=== PATIENT | male | born 1945 | race African-American/Black ===

== ENCOUNTER → 2016-06-27 | Outpatient (CLI) | payer MEDICARE, OTHER | LOC: RAD 09:37 | PROVIDERS: ATTEND Physician Assistant | DX: M54.2 Cervicalgia (principal); M47.892 Other spondylosis, cervical region | CPT/HCPCS: 72050 ==

== ENCOUNTER → 2016-07-10 | Outpatient (CLI) | payer MEDICARE, OTHER | LOC: RAD 07:54 | PROVIDERS: ATTEND Physician Assistant | DX: R94.5 Abnormal results of liver function studies (principal); R42 Dizziness and giddiness | CPT/HCPCS: 76705; 93880 ==

== ENCOUNTER → 2016-10-04 | Outpatient (CLI) | payer MEDICARE, OTHER | LOC: RAD 16:22 | PROVIDERS: ATTEND Family Medicine | DX: M54.5 Low back pain (principal) | CPT/HCPCS: 72148 ==

== ENCOUNTER → 2017-06-17 | Outpatient (CLI) | payer MEDICARE, OTHER ==
--- NOTE | 2017-06-18 09:38 | RADIOLOGY REPORT (SQ) ---
EXAM DESCRIPTION: MRI CERVICAL SPINE WITHOUT COMPLETED DATE/TIME: 06/17/2017 9:28 pm REASON FOR STUDY: CERVICALGIA M54.2 CERVICALGIA COMPARISON: Cervical spine plain films 06/27/2016 TECHNIQUE: Sagittal and Axial imaging includes T1, T2, STIR and gradient echo sequences. LIMITATIONS: None. FINDINGS: ALIGNMENT: Normal. VERTEBRAE: Intact. BONE MARROW: Normal. No marrow replacement or reactive changes. DISCS: Diffuse decreased T2 weighted intervertebral disc signal. HARDWARE: None in the spine. CORD AND BASE OF BRAIN: Normal in size and signal intensity. SOFT TISSUES: No soft tissue masses. C1-C2: No significant spinal stenosis. C2-C3: Minimal posterior disc bulging is present. No significant central or foraminal encroachment. C3-C4: Mild to moderate central canal stenosis results from broad diffuse disc bulge and bony spurrin g and mild bilateral facet and ligament hypertrophy. There is partial effacement of CSF around the c ervical cord, mild cord flattening without abnormal intrinsic cord signal. High-grade bilateral fora abhilash narrowing from facet and uncovertebral hypertrophy. C4-C5: Moderate central canal stenosis results from broad diffuse posterior disc bulge and bony spurr ing. This effaces the ventral thecal sac and abuts the cord with mild cord flattening. No abnormal intrinsic cord signal. Moderate right, high-grade left foraminal narrowing from facet and uncoverteb ral hypertrophy C5-C6: Mild to moderate central canal stenosis results from broad diffuse posterior disc bulge and carola [place] spurring. There is partial effacement of the CSF around the cervical cord without cord flattening or abnormal intrinsic cord signal. Moderate to high-grade bilateral foraminal narrowing is present from facet and uncovertebral hypertrophy. C6-C7: Mild to moderate central canal stenosis results from broad diffuse posterior disc bulge and carola ny spur with a more focal right paracentral and proximal foraminal bulge and bony spur. This flatten s the rightward cervical cord without definite intrinsic cord signal. High-grade right, moderate lef t foraminal narrowing from facet and uncovertebral hypertrophy. C7-T1: Mild diffuse posterior disc bulging, moderate bilateral facet and ligament hypertrophy. Borde rline central canal narrowing. Moderate bilateral foraminal narrowing from facet and uncovertebral h ypertrophy OTHER: No other significant finding. IMPRESSION: Multilevel significant central and foraminal stenosis. TECHNICAL DOCUMENTATION: JOB ID: [id number]- All Rights Reserved
== END ==
LOC: RAD 19:09
PROVIDERS: ATTEND Orthopaedic Surgery
DX: M54.2 Cervicalgia (principal)
CPT/HCPCS: 72141

== ENCOUNTER 2017-09-24 23:33 | Emergency (ER) | payer MEDICARE, OTHER ==
[2017-09-25] MEDS ORDERED: NALOXONE HCL INJ/PF 0.4 MG/1 ML SDV IV ONE
--- NOTE | 2017-09-25 | ER Document Report ---
ED General - General Chief Complaint: Low Blood Pressure Stated Complaint: ALTERED MENTAL STATUS Time Seen by Provider: 09/24/17 23:48 Notes: 72-year-old male presents via EMS for altered mental status. EMS arrived when I stated that he was unresponsive. EMS stated that his blood pressure was low. IV was established. Blood sugar was reportedly normal. Patient was mumbling but otherwise no acute issues. Patient was seen immediately on arrival. Patient was responsive. Stated that he felt like he was floating out of his body. Had surgery on his neck 3 weeks ago and has been going to physical therapy. Has numbness going down his right arm. Denies any fever. Stated that he felt extremely cold. states that he has been wearing gloves at home because his hands are cold. No changes on medications. Patient does suffer from PTSD from [place]. TRAVEL OUTSIDE OF THE [place] IN LAST 30 DAYS: No - HPI Onset: Just prior to arrival - Related Data Allergies/Adverse Reactions: No Known Allergies Allergy (Unverified 05/27/11 18:33) Past Medical History - General Information source: Patient, Relative - Social History Smoking Status: Never Smoker Cigarette use (# per day): No Frequency of alcohol use: None Drug Abuse: None Lives with: Spouse/Significant other Family History: Reviewed & Not Pertinent - Past Medical History Cardiac Medical History: Reports: Hx Hypertension Endocrine Medical History: Reports: Hx Diabetes Mellitus Type 2 Past Surgical History: Reports: Hx Cholecystectomy - Immunizations Hx Diphtheria, Pertussis, Tetanus Vaccination: - unknown Review of Systems - Review of Systems Constitutional: Chills, Weakness. denies: Fever, Malaise EENT: No symptoms reported Cardiovascular: No symptoms reported Respiratory: No symptoms reported Gastrointestinal: No symptoms reported Genitourinary: No symptoms reported Male Genitourinary: No symptoms reported Musculoskeletal: No symptoms reported Skin: No symptoms reported Hematologic/Lymphatic: No symptoms reported Neurological/Psychological: Confusion, Sensory change, Weakness, Numbness Physical Exam - Vital signs Vitals: Temp Pulse Resp BP Pulse Ox 97.4 F 84 16 128/72 H 98 09/24/17 23:50 09/24/17 23:50 09/24/17 23:50 09/24/17 23:50 09/24/17 23:50 Interpretation: Normal - General General appearance: Appears well, Alert - HEENT Head: Normocephalic, Atraumatic Eyes: Normal Pupils: PERRL - Respiratory Respiratory status: No respiratory distress Chest status: Nontender Breath sounds: Normal Chest palpation: Normal - Cardiovascular Rhythm: Regular Heart sounds: Normal auscultation Murmur: No - Abdominal Inspection: Normal Distension: No distension Bowel sounds: Normal Tenderness: Nontender Organomegaly: No organomegaly - Back Back: Normal, Nontender - Extremities General upper extremity: Normal inspection, Nontender, Normal color, Normal ROM , Normal temperature General lower extremity: Normal inspection, Nontender, Normal color, Normal ROM , Normal temperature, Normal weight bearing. No: Capo's sign - Neurological Neuro grossly intact: Yes Cognition: Normal Orientation: AAOx4 [place] Coma Scale Eye Opening: Spontaneous Keegan Coma Scale Verbal: Oriented Keegan Coma Scale Motor: Obeys Commands [place] Coma Scale Total: 15 Speech: Normal Motor strength normal: LUE, RUE, LLE, RLE Sensory: Normal - Psychological Associated symptoms: Normal affect, Normal mood - Skin Skin Temperature: Warm Skin Moisture: Dry Skin Color: Normal Course - Re-evaluation Re-evalutation: 09/25/17 04:08 Initial workup unremarkable. Labs unremarkable. Head CT unremarkable. Patient is still sleepy. Patient did receive a small dose of Narcan. Uncertain whether or not this helped at all. Patient does suffer from severe PTSD. States that he was watching some more movies and shortly after that he began to feel like he was having out of body experience. He states that he has never felt this way before. Denies any hallucinations. Is not suicidal. Patient states that he feels very thirsty. Has been unable to void while here. At this time uncertain why he was altered. Will discuss possible admission to the hospital at this time with the hospitalist. 09/25/17 05:16 Patient's labs, CT chest x-ray unremarkable. Much more alert at this time. Hospitalist has seen and evaluated patient. Does not feel patient needs to be admitted. I would agree at this time. Patient has 300 cc according to bladder scan. Will attempt to get him to urinate if not may need to do a [place]. Patient has follow-up appointment. Is a and O 4 and in no acute distress at this time. 09/25/17 06:18 Laboratory 09/24/17 09/24/17 09/24/17 23:15 23:15 23:15 WBC 5.4 RBC 4.09 L Hgb 11.6 L Hct 36.2 L MCV 89 MCH 28.4 MCHC 32.1 RDW 14.1 H Plt Count 247 Seg Neutrophils % 54.0 Lymphocytes % 31.6 Monocytes % 11.9 Eosinophils % 2.2 Basophils % 0.3 Absolute Neutrophils 2.9 Absolute Lymphocytes 1.7 Absolute Monocytes 0.6 Absolute Eosinophils 0.1 Absolute Basophils 0.0 PT 13.6 INR 0.99 VBG pH VBG pCO2 VBG HCO3 VBG Base Excess Sodium Cancelled Potassium Cancelled Chloride Cancelled Carbon Dioxide Cancelled Anion Gap Cancelled BUN Cancelled Creatinine Cancelled Est GFR ( Amer) Cancelled Est GFR (Non-Af Amer) Cancelled Glucose Cancelled POC Glucose Lactic Acid Calcium Cancelled Total Bilirubin Cancelled Direct Bilirubin Cancelled Neonat Total Bilirubin Cancelled Neonat Direct Bilirubin Cancelled Neonat Indirect Bili Cancelled AST Cancelled ALT Cancelled Alkaline Phosphatase Cancelled Troponin I Total Protein Cancelled Albumin Cancelled Urine Color Urine Appearance Urine pH Ur Specific [place] Urine Protein Urine Glucose (UA) Urine Ketones Urine Blood Urine Nitrite Urine Bilirubin Urine Urobilinogen Ur Leukocyte Esterase Urine WBC (Auto) Urine RBC (Auto) U Hyaline Cast (Auto) Squamous Epi Cells Auto Urine Mucus (Auto) Urine Ascorbic Acid 09/24/17 09/25/17 09/25/17 23:15 00:24 00:24 WBC RBC Hgb Hct MCV MCH MCHC RDW Plt Count Seg Neutrophils % Lymphocytes % Monocytes % Eosinophils % Basophils % Absolute Neutrophils Absolute Lymphocytes Absolute Monocytes Absolute Eosinophils Absolute Basophils PT INR VBG pH 7.33 VBG pCO2 54.2 VBG HCO3 28.1 VBG Base Excess 1.3 Sodium Potassium Chloride Carbon Dioxide Anion Gap BUN Creatinine Est GFR ( Amer) Est GFR (Non-Af Amer) Glucose POC Glucose Lactic Acid 1.8 Calcium Total Bilirubin Direct Bilirubin Neonat Total Bilirubin Neonat Direct Bilirubin Neonat Indirect Bili AST ALT Alkaline Phosphatase Troponin I Cancelled Total Protein Albumin Urine Color Urine Appearance Urine pH Ur Specific [place] Urine Protein Urine Glucose (UA) Urine Ketones Urine Blood Urine Nitrite Urine Bilirubin Urine Urobilinogen Ur Leukocyte Esterase Urine WBC (Auto) Urine RBC (Auto) U Hyaline Cast (Auto) Squamous Epi Cells Auto Urine Mucus (Auto) Urine Ascorbic Acid 09/25/17 09/25/17 09/25/17 00:30 00:57 00:57 WBC RBC Hgb Hct MCV MCH MCHC RDW Plt Count Seg Neutrophils % Lymphocytes % Monocytes % Eosinophils % Basophils % Absolute Neutrophils Absolute Lymphocytes Absolute Monocytes Absolute Eosinophils Absolute Basophils PT INR VBG pH VBG pCO2 VBG HCO3 VBG Base Excess Sodium Cancelled Potassium Cancelled Chloride Cancelled Carbon Dioxide Cancelled Anion Gap Cancelled BUN Cancelled Creatinine Cancelled Est GFR ( Amer) Cancelled Est GFR (Non-Af Amer) Cancelled Glucose Cancelled POC Glucose 156 H Lactic Acid Calcium Cancelled Total Bilirubin Cancelled Direct Bilirubin Cancelled Neonat Total Bilirubin Cancelled Neonat Direct Bilirubin Cancelled Neonat Indirect Bili Cancelled AST Cancelled ALT Cancelled Alkaline Phosphatase Cancelled Troponin I < 0.012 Total Protein Cancelled Albumin Cancelled Urine Color Urine Appearance Urine pH Ur Specific [place] Urine Protein Urine Glucose (UA) Urine Ketones Urine Blood Urine Nitrite Urine Bilirubin Urine Urobilinogen Ur Leukocyte Esterase Urine WBC (Auto) Urine RBC (Auto) U Hyaline Cast (Auto) Squamous Epi Cells Auto Urine Mucus (Auto) Urine Ascorbic Acid 09/25/17 09/25/17 02:41 05:52 WBC RBC Hgb Hct MCV MCH MCHC RDW Plt Count Seg Neutrophils % Lymphocytes % Monocytes % Eosinophils % Basophils % Absolute Neutrophils Absolute Lymphocytes Absolute Monocytes Absolute Eosinophils Absolute Basophils PT INR VBG pH VBG pCO2 VBG HCO3 VBG Base Excess Sodium 143.8 Potassium 4.3 Chloride 105 Carbon Dioxide 28 Anion Gap 11 BUN 11 Creatinine 0.88 Est GFR ( Amer) > 60 Est GFR (Non-Af Amer) > 60 Glucose 133 H POC Glucose Lactic Acid Calcium 9.0 Total Bilirubin 0.1 L Direct Bilirubin 0.1 Neonat Total Bilirubin Not Reportable Neonat Direct Bilirubin Not Reportable Neonat Indirect Bili Not Reportable AST 25 ALT 31 Alkaline Phosphatase 166 H Troponin I Total Protein 6.7 Albumin 3.2 L Urine Color [place]ENE Urine Appearance SLIGHTLY-CLOUDY Urine pH 5.0 Ur Specific [place] 1.024 Urine Protein 30 H Urine Glucose (UA) NEGATIVE Urine Ketones NEGATIVE Urine Blood NEGATIVE Urine Nitrite NEGATIVE Urine Bilirubin NEGATIVE Urine Urobilinogen 4.0 H Ur Leukocyte Esterase NEGATIVE Urine WBC (Auto) 2 Urine RBC (Auto) 4 U Hyaline Cast (Auto) 15 Squamous Epi Cells Auto <1 Urine Mucus (Auto) FEW Urine Ascorbic Acid 40 H - Vital Signs Vital signs: Temp Pulse Resp BP Pulse Ox 97.4 F 84 18 133/79 H 99 09/24/17 23:50 09/24/17 23:50 09/25/17 00:11 09/25/17 00:11 09/25/17 00:11 - Laboratory Result Diagrams: 09/24/17 23:15 09/25/17 02:41 Laboratory results interpreted by me: 09/24/17 09/25/17 09/25/17 23:15 00:30 02:41 RBC 4.09 L Hgb 11.6 L Hct 36.2 L RDW 14.1 H Glucose 133 H POC Glucose 156 H Total Bilirubin 0.1 L Alkaline Phosphatase 166 H Albumin 3.2 L Urine Protein Urine Urobilinogen Urine Ascorbic Acid 09/25/17 05:52 RBC Hgb Hct RDW Glucose POC Glucose Total Bilirubin Alkaline Phosphatase Albumin Urine Protein 30 H Urine Urobilinogen 4.0 H Urine Ascorbic Acid 40 H Discharge - Discharge Clinical Impression: Altered mental status Qualifiers: Altered mental status type: unspecified Qualified Code(s): R41.82 - Altered mental status, unspecified Condition: Good Disposition: HOME, SELF-CARE Instructions: Altered Mental Status ([facility]) Additional Instructions: We appreciate everything that you have done for your country. We are honored to take care of [place] heroes like yourself! It has been my pleasure taking care of you today. Please know that we are here for you. In the event that you are having any worsening symptoms please return. Please follow-up with your regular doctor.
[2017-09-25 00:27] LABS: ABSOLUTE EOSINOPHILS # (AUTO) 0.1 10^3/uL (0.0-0.6); ABSOLUTE LYMPHOCYTES (AUTO) 1.7 10^3/uL (0.5-4.7); ABSOLUTE MONOCYTES (AUTO) 0.6 10^3/uL (0.1-1.4); ABSOLUTE NEUT (AUTO) 2.9 10^3/uL (1.7-8.2); BASOPHILS % (AUTO) 0.3 % (0-2); EOSINOPHILS % (AUTO) 2.2 % (0-6); HEMATOCRIT 36.2 % (37.9-51.0); HEMOGLOBIN 11.6 g/dL (13.5-17.0); LYMPHOCYTES % (AUTO) 31.6 % (13-45); MEAN CORPUSCULAR HEMOGLOBIN 28.4 pg (27.0-33.4); MEAN CORPUSCULAR HGB CONC 32.1 g/dL (32.0-36.0); MEAN CORPUSCULAR VOLUME 89 fl (80-97); MONOCYTES % (AUTO) 11.9 % (3-13); PLATELET COUNT 247 10^3/uL (150-450); RED BLOOD COUNT 4.09 10^6/uL (4.35-5.55); RED CELL DISTRIBUTION WIDTH 14.1 % (11.5-14.0); TOTAL CELLS COUNTED % (AUTO) 100 %; WHITE BLOOD COUNT 5.4 10^3/uL (4.0-10.5)
[2017-09-25 00:31] LABS: INTERNATIONAL RATION (INR) 0.99; PROTHROMBIN TIME 13.6 SEC (11.4-15.4)
[2017-09-25 00:37] LABS: VENOUS BLOOD BASE EXCESS 1.3 mmol/L; VENOUS BLOOD HCO3 28.1 mmol/L (20-32); VENOUS BLOOD PCO2 54.2 mmHg (35-63); VENOUS BLOOD PH 7.33 (7.30-7.42)
--- NOTE | 2017-09-25 01:42 | RADIOLOGY REPORT (SQ) ---
EXAM DESCRIPTION: CHEST SINGLE VIEW CLINICAL HISTORY: altered, cough COMPARISON: 12/09/2014 FINDINGS: Single frontal view of the chest. The cardiomediastinal silhouette has normal size and contour. No consolidation, pneumothorax, or pleural effusion. A separate change of the cervical spine. Leads overlie the chest. Upper abdominal soft tissues are unremarkable. IMPRESSION: 1. No acute pulmonary process identified.
--- NOTE | 2017-09-25 01:52 | RADIOLOGY REPORT (SQ) ---
EXAM DESCRIPTION: CT HEAD WITHOUT CLINICAL HISTORY: Altered mental status COMPARISON: None available TECHNIQUE: Axial CT of the head obtained from the skull apex to the skull base without contrast. FINDINGS: No acute intracranial hemorrhage identified. No mass, mass effect, shift of the midline, abnormal extra-axial fluid collection or CT evidence of acute ischemic change identified. The ventricular system and sulcal spaces are mildly enlarged compatible with mild cerebral atrophy. Scattered areas of hypodensity throughout the supratentorial white matter are nonspecific and may be related to chronic small vessel ischemic change. The visualized paranasal sinuses and the mastoids are clear. No skull fracture identified. Visualized orbits and globes are unremarkable. Atherosclerotic calcification of the intracranial internal carotid arteries. DLP: 1070.38 mGy-cm IMPRESSION: 1. No acute intracranial abnormality by CT criteria. This exam was performed according to our departmental dose-optimization program, which includes automated exposure control, adjustment of the mA and/or kV according to patient size and/or use of iterative reconstruction technique.
[2017-09-25 03:26] LABS: ALANINE AMINOTRANSFERASE 31 U/L (21-72); ALBUMIN 3.2 g/dL (3.5-5.0); ALKALINE PHOSPHATASE 166 U/L (38-126); ANION GAP 11 (5-19); ASPARTATE AMINO TRANSFERASE 25 U/L (17-59); BILIRUBIN,DIRECT 0.1 mg/dL (0.0-0.4); BILIRUBIN,TOTAL 0.1 mg/dL (0.2-1.3); BLOOD UREA NITROGEN 11 mg/dL (7-20); CARBON DIOXIDE 28 mmol/L (22-30); CHLORIDE 105 mmol/L (98-107); GLUCOSE 133 mg/dL (75-110); POTASSIUM 4.3 mmol/L (3.6-5.0); SODIUM 143.8 mmol/L (137-145); TOTAL PROTEIN 6.7 g/dL (6.3-8.2)
[2017-09-25] MEDS ORDERED: NORMAL SALINE 1000 ML 1,000 ML IV ONE (04:04)
[2017-09-25 06:17] LABS: APPEARANCE,URINE SLIGHTLY-CLOUDY; BILIRUBIN,URINE NEGATIVE (NEGATIVE); COLOR,URINE AMBER; GLUCOSE, URINE NEGATIVE (NEGATIVE); KETONES,URINE NEGATIVE (NEGATIVE); LEUKOCYTE ESTERASE,URINE NEGATIVE (NEGATIVE); NITRITE,URINE NEGATIVE (NEGATIVE); PROTEIN,URINE 30 mg/dL (NEGATIVE); URINE SPECIFIC GRAVITY 1.024
[2017-09-25 06:30] VITALS: BP 153/86
--- NOTE | 2017-09-25 23:40 | EKG REPORT ---
SEVERITY:- NORMAL ECG - SINUS RHYTHM : Confirmed by: Tristin Falcon 25-Sep-2017 23:39:06
== END 2017-09-25 06:30 | disposition home or self-care (01) ==
LOC: ER 23:33
DX: R41.82 Altered mental status, unspecified (principal); R20.0 Anesthesia of skin; I10 Essential (primary) hypertension; E11.9 Type 2 diabetes mellitus without complications
CPT/HCPCS: 93005; 99285; 96361; 96374; 36415; 87040; 87086; 82962; 85025; 85610; 80053; 81001; 84484; 82803; 83605; 71045; 70450; 93010; J2310; J7030

== ENCOUNTER → 2018-01-01 | Outpatient (CLI) | payer MEDICARE, OTHER ==
--- NOTE | 2018-01-01 17:58 | RADIOLOGY REPORT (SQ) ---
EXAM DESCRIPTION: MRI LUMBAR SPINE WITHOUT COMPLETED DATE/TIME: 01/01/2018 10:27 am REASON FOR STUDY: LUMBAR RADICULOPATHY M54.16 RADICULOPATHY, LUMBAR REGION COMPARISON: MRI lumbar spine 10/04/2016 TECHNIQUE: Sagittal and Axial imaging includes T1, T2, STIR and gradient echo sequences. Coronal T2/ HASTE imaging. LIMITATIONS: None. FINDINGS: VISUALIZED UPPER ABDOMEN: Limited evaluation. No acute or suspicious findings suggested. SEGMENTATION: No transitional anatomy. The lowest well-developed disc space is labeled L5-S1. ALIGNMENT: Grade 1 anterolisthesis of L4 over L5 VERTEBRAE: Intact. BONE MARROW: Normal. No marrow replacement or reactive changes. DISC SIGNAL: Diffuse decreased T2 weighted intervertebral disc signal POSTERIOR ELEMENTS: Generally intact. No pars defect evident. HARDWARE: None in the spine. CORD AND CONUS: Normal in size and signal intensity. Conus at the L1-2 level. SOFT TISSUES: No aortic aneurysm seen. No bulky retroperitoneal adenopathy or mass. No paraspinal mas s or fluid. T11-12: At the upper edge of the field of view. No central stenosis. Mild bilateral foraminal narr owing from facet hypertrophy. T12-L1: No central stenosis. Mild bilateral foraminal narrowing from facet and uncovertebral hypert rophy. L1-L2: No central stenosis. Mild bilateral foraminal narrowing from facet and uncovertebral hypertro phy. L2-L3: No central stenosis. Mild bilateral foraminal narrowing from facet and uncovertebral hypertro phy. L3-L4: Mild posterior disc bulge, moderate bilateral facet and ligament hypertrophy. No central sten osis. Mild bilateral inferior foraminal narrowing. L4-L5: Grade 1 anterolisthesis of L4 over L5. Bulky bilateral facet and ligament hypertrophy. No ce ntral stenosis. Moderate bilateral foraminal narrowing is present with partial effacement of the fat around the exiting L4 nerve roots left greater than right L5-S1: Mild diffuse posterior disc bulge and bony spurring, mild bilateral facet and ligament hypertr ophy. No central stenosis. Moderate right, mild left foraminal narrowing without definite exiting L 5 nerve root impingement. SACRUM: Visualized upper sacrum intact. OTHER: No other significant findings. IMPRESSION: Diffuse degenerative changes as above TECHNICAL DOCUMENTATION: JOB ID: [id number]- All Rights Reserved Reading location - IP/workstation name: [email or web address]
== END ==
LOC: RAD 09:09
PROVIDERS: ATTEND Orthopaedic Surgery
DX: M51.16 Intervertebral disc disorders with radiculopathy, lumbar region (principal)
CPT/HCPCS: 72148

== ENCOUNTER → 2018-01-22 | Outpatient (CLI) | payer MEDICARE, OTHER ==
--- NOTE | 2018-01-22 14:03 | RADIOLOGY REPORT (SQ) ---
EXAM DESCRIPTION: CT CHEST WITHOUT COMPLETED DATE/TIME: 01/22/2018 11:02 am REASON FOR STUDY: SOLITARY PULMONARY NODULE R91.1 SOLITARY PULMONARY NODULE COMPARISON: 12/09/2014 TECHNIQUE: CT scan performed of the chest without intravenous contrast. Images reviewed with lung, soft tissue and bone windows. Reconstructed coronal and sagittal MPR images reviewed. All images st ored on PACS. All CT scanners at this facility use dose modulation, iterative reconstruction, and/or weight based d osing when appropriate to reduce radiation dose to as low as reasonably achievable (ALARA). [facility]: Dose Right [facility]: CareDose [facility]: Dose Right [facility]: Teradose 4D [facility]: [facility] [place] RADIATION DOSE: CT Rad equipment meets quality standard of care and radiation dose reduction techniq ues were employed. CTDIvol: 14.8 mGy. DLP: 540 mGy-cm. mGy. LIMITATIONS: No technical limitations. FINDINGS: LUNGS AND PLEURA: There is a 3.8 mm nodule on image 31/60. This is stable when compared t o prior study. This lies in the lateral segment of the right middle lobe. The other 4 mm nodule pre viously described is no longer present. Calcified granuloma in the left lower lobe is unchanged. . HILAR AND MEDIASTINAL STRUCTURES: No identified masses or abnormal nodes. No obvious aneurysm. Ther e are calcified hilar and mediastinal nodes consistent with old granulomatous disease. HEART AND VASCULAR STRUCTURES: No aneurysm. No pericardial effusion. UPPER ABDOMEN: No significant findings. Limited exam. THYROID AND OTHER SOFT TISSUES: No masses. No adenopathy. BONES: No significant finding. HARDWARE: None in the chest. OTHER: No other significant findings. IMPRESSION: No significant findings in the chest. There is a stable 3.8 mm nodule in the right midd le lobe. There is a calcified granuloma in the left base. No additional follow-up is needed. TECHNICAL DOCUMENTATION: JOB ID: [id number] Quality ID # [id number]: Final reports with documentation of one or more dose reduction techniques (e.g., Au tomated exposure control, adjustment of the mA and/or kV according to patient size, use of iterative reconstruction technique) 2010 [employer]- All Rights Reserved Reading location - IP/workstation name: [email or web address]
== END ==
LOC: RAD 10:51
PROVIDERS: ATTEND Family Medicine
DX: R91.1 Solitary pulmonary nodule (principal)
CPT/HCPCS: 71250

== ENCOUNTER → 2018-09-29 | Outpatient (CLI) | payer MEDICARE, OTHER ==
--- NOTE | 2018-09-29 16:18 | XCELERA REPORT ---
[address] [facility] [address] Lower Extremity Venous Evaluation Procedure: Color flow and duplex imaging bilaterally of the veins of the lower extremities as well as the Common Femoral veins. Right Sided Venous Evaluation Normal vessel filling wall to wall, compression and augmentation as well as Colour flow down to the infrageniculate veins. Left Sided Venous Evaluation Normal vessel filling wall to wall, compression and augmentation as well as Colour flow down to the infrageniculate veins. Interpretation Summary No duplex evidence of DVT or obstruction in the bilateral lower extremities. Name: VIKAS GILMAN Age: 73 yrs Gender: Male : 1945 Patient Status: Outpatient Patient Location: Study Date: 09/29/2018 01:24 PM Reason For Study: EDEMA Ordering Physician: BEST GUADALUPE Performed By: Aleksandra Lemus : BEST GUADALUPE > Robbi Johnson
== END ==
LOC: SP 12:35
PROVIDERS: ATTEND Family Medicine
DX: R60.0 Localized edema (principal)
CPT/HCPCS: 93970

== ENCOUNTER 2018-10-06 10:00 | Day surgery (SDC) | payer MEDICARE, OTHER ==
[~2018-10-06 10:00] MED LIST: KETOROLAC TROMETHAMINE 0.45% 4 DROP/0.4 ML DROPERETTE OS PRN
[2018-10-06] MEDS ORDERED: MIDAZOLAM 2 MG/2 ML INJ ONE ×2 (10:17→11:22)
[2018-10-06] MEDS: TETRACAINE HCL 0.5% OPH SOLN 0.6 ML DROPERETTE OS PRN ×4 (11:00→11:44)
[2018-10-06] MEDS: BESIFLOXACIN HCL 0.6% OPH SUSP 5 ML BOTTLE OS PRN ×4 (11:01→12:37)
[2018-10-06] MEDS: TROPICAMIDE 1% OPH SOLN 3 ML OS PRN ×3 (11:01→11:30)
[2018-10-06] MEDS: CYCLOPENTOLATE 0.2%/PHENYLEPHRINE 1% OPH SOLN 2 ML OS PRN ×3 (11:01→11:30)
[2018-10-06] MEDS: LIDOCAINE 4% INJ/PF (40 MG/ML) 5 ML AMPUL OS PRN ×2 (11:53)
[2018-10-06] MEDS: BUPIVACAINE HCL 0.75% INJ/PF (7.5 MG/1 ML) 10 ML SDV OS PRN ×2 (11:53)
[2018-10-06] MEDS: EPINEPHRINE INJ/PF 1 MG/1 ML AMPULE ONE ×2 (12:08)
[2018-10-06] MEDS: LIDOCAINE 1% INJ-PF (10 MG/ML) 30 ML SDV ONE ×2 (12:08)
[2018-10-06] MEDS: CHONDR SU A NA/HYALUR INTRAOC KIT (SURGICARE) ONE ×2 (12:08)
[2018-10-06] MEDS ORDERED: HYALURONATE SODIUM SYRINGE 0.55 ML ONE (12:21)
[2018-10-06] MEDS: DORZOLAMIDE HCL 2%/TIMOLOL MALEAT 0.5% OPH SOLN 10 ML OS PRN ×2 (12:37)
--- NOTE | 2018-10-06 13:44 | [facility] OPERATIVE REPORT E ---
[facility] Operative Report NAME: VIKAS GILMAN AGE: 73Y DATE OF SURGERY: 10/06/2018 ROOM: PREOPERATIVE DIAGNOSES: 1. Cataract, left eye. 2. Glaucoma, left eye. POSTOPERATIVE DIAGNOSES: 1. Cataract, left eye. 2. Glaucoma, left eye. PROCEDURES PERFORMED: 1. Phacoemulsification with posterior chamber intraocular lens, left eye. 2. Insertion of IStent inject, left eye. SURGEON: ANAM ROY M.D. ANESTHESIA: Topical with MAC plus intraocular lidocaine. INDICATIONS FOR SURGERY: Difficulty reading small print and poor depth perception. INDICATIONS FOR ISTENT: Mild primary opening of glaucoma to lower intraocular pressure and avoid the use of eye drops. PROCEDURE: The patient was brought to the operating room and topical anesthesia was administered. This consisted of instrument wipe pledgets soaked in a solution of 4% Xylocaine mixed with 0.75% Marcaine in a 1:1 ratio. A 2 x 1 cm pledget was placed in the superior fornix. A 1 x 1 cm pledget was placed in the inferior fornix. The eye was patched shut for 5 minutes. The eye was then sterilely prepped and draped in the usual manner. The pledgets were removed. Lid speculum was placed in the eye. 4-0 black silk sutures were placed around the superior and inferior rectus muscles to be used as traction. A conjunctival peritomy was made at the 135-degree axis. Hemostasis was obtained with bipolar cautery. A posterior limbal groove was created using a crescent knife and dissected anteriorly towards the cornea. A sharp point blade was used to create a paracentesis site at the 2 o'clock position. Total of 0.2 mL of 1% non-preserved lidocaine was injected into the anterior chamber. A 2.4 mm keratome was used to enter the anterior chamber through the groove. Viscoelastic was injected into the anterior chamber. An anterior capsulotomy was performed using Utrata forceps in a capsulorrhexis fashion. Hydrodissection and hydrodelineation were performed. Phacoemulsification was performed in [id number] technique. A total of 7.26 CDE total phaco time was used. Following this, the I/A unit was used to remove residual cortex. Intraocular lens model SN60WF, 14.5 diopters, serial number [id number] was injected in the eye following injection of Provisc. The eye was rotated inferiorly and a gonial prism was placed on the eye. The trabecular meshwork was easily visualized. The iStent inject was opened and I placed the incision. The iStents were placed inferiorly and temporally about 2 clock hours apart. The I/A unit was used to remove residual viscoelastic. The wound was seen to be watertight under high and low pressure, and no sutures were placed. The 4-0 black silk sutures and lid speculum were removed. One drop of Cosopt and one drop of Besivance were placed in the eye. DICTATING PHYSICIAN: ANAM ROY M.D. [id number] PHY#: [id number] ID: [id number] JOB#: [id number] ACCT: [id number] cc:ANAM ROY M.D. > MTDD
--- NOTE | 2018-10-06 15:11 | [facility] DISCHARGE SUMMARY E ---
[facility] Discharge Summary NAME: VIKAS GILMAN AGE: 73Y ADMITTED: 10/06/2018 DISCHARGED: 10/06/2018 HOSPITAL COURSE: The patient is a 73-year-old gentleman who underwent uneventful cataract extraction with istent inject on 10/06/2018. He is instructed to take Tylenol as needed for discomfort, to keep his eye shielded, to use Durezol, Besivance,and prolensa at 3pm and 8pm and to follow up in my office in one day. DICTATING PHYSICIAN: ANAM ROY M.D. [id number] PHY#: [id number] ID: [id number] JOB#: [id number] ACCT: [id number] cc:ANAM ROY M.D. > MTDD
== END 2018-10-06 13:37 | disposition home or self-care (01) ==
LOC: SC 10:00
PROVIDERS: ATTEND Ophthalmology
DX: H25.812 Combined forms of age-related cataract, left eye (principal); H40.1121 Primary open-angle glaucoma, left eye, mild stage; Z96.1 Presence of intraocular lens; H40.1131 Primary open-angle glaucoma, bilateral, mild stage; I10 Essential (primary) hypertension; E11.9 Type 2 diabetes mellitus without complications; Z79.1 Long term (current) use of non-steroidal anti-inflammatories (NSAID); Z79.82 Long term (current) use of aspirin
CPT/HCPCS: 0191T; 66984; 142; 82962; C1783; J0171; J2250; J3490; V2632

== ENCOUNTER → 2019-01-19 | Outpatient (CLI) | payer MEDICARE, OTHER ==
--- NOTE | 2019-01-19 17:33 | RADIOLOGY REPORT (SQ) ---
EXAM DESCRIPTION: MRI HEAD WITHOUT COMPLETED DATE/TIME: 01/19/2019 5:04 pm REASON FOR STUDY: (R26.81)UNSTEADINESS ON FEET R26.81 UNSTEADINESS ON FEET COMPARISON: CT brain dated 09/25/2017, MRI brain dated 02/13/2015 TECHNIQUE: Multiplanar imaging includes non-contrasted T1, T2, FLAIR, and diffusion with ADC map seq uences. Images stored on PACS. LIMITATIONS: None. FINDINGS: ANATOMY: No anomalies. Normal vascular flow voids. Pituitary fossa normal. CSF SPACES: Normal in size and contour. No hemorrhage. CEREBRUM: Sulci and gyri normal in size and contour. Normal white matter signal on FLAIR imaging. No evidence of hemorrhage, mass, or extraaxial fluid collection. POSTERIOR FOSSA: No signal alteration. No hemorrhage. No edema, masses or mass effect. Internal connor tory canals, cerebello-pontine angles, mastoids normal. DIFFUSION IMAGING: Negative for acute or sub-acute infarction. ORBITS: No masses. Globes normal. PARANASAL SINUSES: No fluid levels. Mucosa normal. OTHER: No other significant finding. IMPRESSION: NORMAL MRI OF THE BRAIN WITHOUT INTRAVENOUS GADOLINIUM CONTRAST. EVIDENCE OF ACUTE STROKE: NO. TECHNICAL DOCUMENTATION: JOB ID: [id number] [email or web address]- All Rights Reserved Reading location - IP/workstation name: [email or web address]
== END ==
LOC: RAD 15:26
PROVIDERS: ATTEND Family Medicine
DX: R26.81 Unsteadiness on feet (principal)
CPT/HCPCS: 70551

== ENCOUNTER 2019-04-26 02:36 | Emergency (ER) | payer MEDICARE, OTHER ==
[2019-04-26] MEDS ORDERED: MORPHINE SULFATE 10 MG/ML INJ IV PRN (04:03)
[2019-04-26] MEDS ORDERED: ONDANSETRON HCL INJ/PF 4 MG/2 ML SDV IV ONE ×2 (04:03→05:51)
--- NOTE | 2019-04-26 04:16 | ER Document Report ---
ED General - General Chief Complaint: Neck and Upper Back Pain Stated Complaint: NECK AND BACK PAIN Time Seen by Provider: 04/26/19 03:48 Primary Care Provider: BEST GUADALUPE MD [Primary Care Provider] - Follow up as needed TRAVEL OUTSIDE OF THE [place] IN LAST 30 DAYS: No - Related Data Allergies/Adverse Reactions: No Known Allergies Allergy (Verified 04/26/19 02:49) Past Medical History - Social History Smoking Status: Never Smoker Frequency of alcohol use: Occasional Drug Abuse: None Family History: Reviewed & Not Pertinent Patient has suicidal ideation: No Patient has homicidal ideation: No - Past Medical History Cardiac Medical History: Reports: Hx Hypertension Denies: Hx Heart Attack Pulmonary Medical History: Denies: Hx Asthma Neurological Medical History: Denies: Hx Cerebrovascular Accident, Hx Seizures Endocrine Medical History: Reports: Hx Diabetes Mellitus Type 2 Renal/ Medical History: Denies: Hx Peritoneal Dialysis GI Medical History: Denies: Hx Hepatitis, Hx Hiatal Hernia, Hx Ulcer Infectious Medical History: Denies: Hx Hepatitis Past Surgical History: Reports: Hx Cholecystectomy, Hx Orthopedic Surgery - neck/back. Denies: Hx Open Heart Surgery, Hx Pacemaker - Immunizations Hx Diphtheria, Pertussis, Tetanus Vaccination: - unknown Physical Exam - Vital signs Vitals: Temp Pulse Resp BP Pulse Ox 97.5 F 65 17 156/82 H 99 04/26/19 02:37 04/26/19 02:37 04/26/19 02:37 04/26/19 02:37 04/26/19 02:37 - Notes Notes: Patient was brought in by paramedics status post fall approximately 30 minutes prior to arrival. Patient says normally stays up late and was watching TV. He went to the kitchen to get something to slip was on the loss of balance and fell backwards. Preceding chest pain or dizziness he did hit his head but there is no loss of consciousness. Because of pain he could not get up. Is called paramedics who transported him here he is complaining of headache neck pain upper and lower back pain. Eyes any chest pain or shortness of breath nausea vomiting or abdominal pain no numbness or weakness in the lower extremities no loss of bowel bladder function pain is worse with movement Past medical history is significant for hypertension diabetes he has no heart disease. Social history he does not smoke occasional alcohol Medications currently on aspirin no Plavix or Coumadin Surgical history includes fusion of C2-C6 and recent eye surgery Review of systems pertinent positives and negatives in HPI otherwise all the systems were reviewed and acutely negative Meds were reviewed he is not on Lyrica PHYSICIAN EXAM -vital signs are noted triage note and note from triage reviewed GENERAL: Well-appearing, well-nourished and in __mild distress from pain____ HEAD: Atraumatic, normocephalic. EYES: Pupils equal round and reactive to light, extraocular movements intact, sclera anicteric, left conjunctiva are injected him and his states from the surgery. Is got no hyphema nose and pharynx are clear the face is nontender ENT: nares patent, oropharynx clear without exudates. Moist mucous membranes. NECK: supple without lymphadenopathy she has some minimal tenderness in the midline but no step-off collar was left on his x-ray he is able to move his neck around LUNGS: Breath sounds clear to auscultation bilaterally and equal. No wheezes rales or rhonchi. HEART: Regular rate and rhythm without murmurs ABDOMEN: Soft, nontender, normoactive bowel sounds. Slightly distended but nontender EXTREMITIES: Upper lower extremities with no bony tenderness. He is got good movement of his joints NEUROLOGICAL: NEUROLOGICAL: Alert and oriented x4. Cranial nerves she has symmetrical smile facial expressions and shoulder shrug motor strength is 5/5 bilaterally in the upper lower extremities. Toes are downgoing. Sensation is intact to light touch. negative Romberg PSYCH: Normal mood, normal affect. SKIN: Warm, Dry, normal turgor, no rashes or lesions noted. BACK-he is got tenderness in the upper thoracic spine and then from the lower thoracic spine extending into the lumbar area. There is in the coccyx. His pelvis is stable with full range of motion of both hips Differential diagnosis includes fracture contusion concussion Course - Re-evaluation Re-evalutation: 04/26/19 06:03 ED patient is remained stable he is a serial exams remain neurologically intact abdomen is nontender pain has improved. Tolerating liquids well Medical decision making patient presents emerge department status post slip and fall with contusion to his back and head. Was unremarkable he is feeling better and can be discharged home with head injury instructions. A prescription for Vicodin and warned about side effects of medication advised will need his blood pressure rechecked Dictation was done using voice recognition software. There may be some grammatical errors which are unintentional I discussed results of laboratory findings and diagnostic test with patient/family. The treatment plan was explained and I reviewed the discharge instructions with them. Questions were answered. The patient/family verbalizes understanding - Vital Signs Vital signs: Temp Pulse Resp BP Pulse Ox 97.5 F 65 17 156/82 H 99 04/26/19 02:37 04/26/19 02:37 04/26/19 02:37 04/26/19 02:37 04/26/19 02:37 Discharge - Discharge Clinical Impression: Concussion Qualifiers: Encounter type: initial encounter Loss of consciousness presence/duration: without LOC Qualified Code(s): S06.0X0A - Concussion without loss of consciousness, initial encounter Neck strain Qualifiers: Encounter type: initial encounter Qualified Code(s): S16.1XXA - Strain of muscle, fascia and tendon at neck level, initial encounter Back contusion Qualifiers: Encounter type: initial encounter Laterality: unspecified laterality Qualified Code(s): S20.229A - Contusion of unspecified back wall of thorax, initial encounter Disposition: HOME, SELF-CARE Instructions: Concussion ([facility]), Neck Injury (Cervical Strain) ([facility]) Additional Instructions: Please review the discharge instructions, they will tell you about your disease/injury and what you need to return to the ED for Return to the ED if you feel worse or can follow-up with your family doctor Follow-up with your family doctor in 3 to 5 days if not better The x-ray of your head (CT) did not show any evidence of bleeding or bruising. However because the medications that you are on there is a possibility of delayed injury that can occur 12 to 36 hours later. It is very important that you review the discharge instructions and return immediately if you develop severe headaches abnormal vision nausea vomiting or confusion Your blood pressure was elevated today needs to be rechecked again in 1 to 2 weeks to determine if need to be on medication or have your medications adjusted. Untreated hypertension can cause heart attack stroke and kidney failure The pain medications may cause drowsiness. Be careful if you are using crutches. Do not drive or operate machinery. Do not take Tylenol with the pain medication Do not take the Lyrica while taking the Vicodin Prescriptions: Hydrocodone/Acetaminophen [[place] 5-325 mg Tablet] 1 tab PO Q6 #14 tablet Forms: Elevated Blood Pressure Referrals: BEST GUADALUPE MD [Primary Care Provider] - Follow up as needed
--- NOTE | 2019-04-26 04:49 | RADIOLOGY REPORT (SQ) ---
CLINICAL HISTORY: Trauma COMPARISON: None. 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 FINDINGS: There is no acute hemorrhage, mass effect or midline shift. Cunningham-white differentiation is preserved. There is no hydrocephalus. There is no significant volume loss for age. There are mild patchy hypodensities within the periventricular and subcortical white matter, consistent with microangiopathic ischemic changes. The calvarium is intact. Orbits and globes are unremarkable. The paranasal sinuses are clear. Mastoid air cells are clear. IMPRESSION: No acute intracranial findings.
--- NOTE | 2019-04-26 05:47 | RADIOLOGY REPORT (SQ) ---
CLINICAL HISTORY: Trauma COMPARISON: None. 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 FINDINGS: There is no acute fracture. Alignment is anatomic. Posterior fusion of C3-T2 vertebral was performed. There is moderate narrowing of the C3-4 disc. Vertebral body heights are preserved. Soft tissues are unremarkable. IMPRESSION: No acute fracture or subluxation.
--- NOTE | 2019-04-26 05:48 | RADIOLOGY REPORT (SQ) ---
CLINICAL HISTORY: Trauma COMPARISON: None. TECHNIQUE: CT THORACIC SPINE WITHOUT IV CONTRAST on 04/26/2019 4:06 AM ENGINEER AUTOMATED EQUIPMENT This exam was performed according to our departmental dose-optimization program, which includes automated exposure control, adjustment of the mA and/or kV according to patient size and/or use of iterative reconstruction technique. FINDINGS: There is no acute fracture. Alignment is anatomic. Cervicothoracic fusion was performed. There are ventral flowing osteophytes joining the disc spaces. 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 There is mild to moderate narrowing of essentially all of the thoracic discs. Vertebral body heights are preserved. Soft tissues are unremarkable. IMPRESSION: No acute fracture. Findings suggestive of ankylosing spondylitis.
--- NOTE | 2019-04-26 05:49 | RADIOLOGY REPORT (SQ) ---
CLINICAL HISTORY: Trauma COMPARISON: None. TECHNIQUE: CT LUMBAR SPINE WITHOUT IV CONTRAST on 04/26/2019 4:05 AM TREE WRAPPER This exam was performed according to our departmental dose-optimization program, which includes automated exposure control, adjustment of the mA and/or kV according to patient size and/or use of iterative reconstruction technique. FINDINGS: There is no acute fracture. There is grade 1 anterolisthesis of L4 on L5. There is moderate diffuse facet arthritis. There may be early ankylosing changes throughout the lumbar spine with small ventral osteophytes throughout. Disc spaces are maintained. Vertebral body heights are preserved. Soft tissues are unremarkable. IMPRESSION: No acute fracture or subluxation.
[2019-04-26] MEDS ORDERED: MORPHINE SULFATE 10 MG/ML INJ IV ONE (05:51)
[2019-04-26 06:33] VITALS: BP 135/49
== END 2019-04-26 06:39 | disposition home or self-care (01) ==
LOC: ER 02:36
DX: S16.1XXA Strain of muscle, fascia and tendon at neck level, initial encounter (principal); S20.229A Contusion of unspecified back wall of thorax, initial encounter; S06.0X0A Concussion without loss of consciousness, initial encounter; M54.2 Cervicalgia; M54.6 Pain in thoracic spine; W19.XXXA Unspecified fall, initial encounter; I10 Essential (primary) hypertension; E11.9 Type 2 diabetes mellitus without complications
CPT/HCPCS: 96376; 99284; 96374; 96375; 70450; 72125; 72128; 72131; J2270; J2405

== ENCOUNTER 2019-07-28 18:48 | Observation (INO) | payer MEDICARE, OTHER ==
[2019-07-28] MEDS: NITROGLYCERIN 0.4 MG/TAB 25 TAB/BOTTLE SL PRN ×3 (19:01→19:11)
[2019-07-28] MEDS ORDERED: ASPIRIN 81 MG TABLET, CHEWABLE PO ONE (19:10)
[2019-07-28] MEDS ORDERED: ONDANSETRON HCL INJ/PF 4 MG/2 ML SDV IV ONE ×2 (19:11→19:15)
[2019-07-28] MEDS ORDERED: MORPHINE SULFATE 10 MG/ML INJ IV ONE (19:14)
[2019-07-28] MEDS ORDERED: NITROGLYCERIN/D5W 50 MG/250 ML RTUINJ IV PRN (19:16)
[2019-07-28 19:22] LABS: ABSOLUTE EOSINOPHILS # (AUTO) 0.2 10^3/uL (0.0-0.6); ABSOLUTE LYMPHOCYTES (AUTO) 1.4 10^3/uL (0.5-4.7); ABSOLUTE MONOCYTES (AUTO) 0.6 10^3/uL (0.1-1.4); ABSOLUTE NEUT (AUTO) 2.7 10^3/uL (1.7-8.2); BASOPHILS % (AUTO) 0.4 % (0-2); EOSINOPHILS % (AUTO) 3.7 % (0-6); HEMATOCRIT 43.2 % (37.9-51.0); HEMOGLOBIN 14.3 g/dL (13.5-17.0); LYMPHOCYTES % (AUTO) 27.7 % (13-45); MEAN CORPUSCULAR HEMOGLOBIN 30.2 pg (27.0-33.4); MEAN CORPUSCULAR HGB CONC 33.2 g/dL (32.0-36.0); MEAN CORPUSCULAR VOLUME 91 fl (80-97); MONOCYTES % (AUTO) 12.9 % (3-13); PLATELET COUNT 196 10^3/uL (150-450); RED BLOOD COUNT 4.74 10^6/uL (4.35-5.55); RED CELL DISTRIBUTION WIDTH 15.6 % (11.5-14.0); SEGMENTED NEUTROPHILS % (AUTO) 55.3 % (42-78); TOTAL CELLS COUNTED % (AUTO) 100 %; WHITE BLOOD COUNT 4.9 10^3/uL (4.0-10.5)
[2019-07-28 19:24] LABS: INTERNATIONAL RATION (INR) 0.92; PROTHROMBIN TIME 12.3 SEC (11.4-15.4)
[2019-07-28 19:25] LABS: PARTIAL THROMBOPLASTIN TIME 24.4 SEC (23.5-35.8)
[2019-07-28 19:34] LABS: ALBUMIN 3.9 g/dL (3.5-5.0); ALKALINE PHOSPHATASE 178 U/L (38-126); ANION GAP 7 (5-19); ASPARTATE AMINO TRANSFERASE 30 U/L (17-59); BILIRUBIN,DIRECT 0.3 mg/dL (0.0-0.4); BILIRUBIN,TOTAL 0.3 mg/dL (0.2-1.3); BLOOD UREA NITROGEN 11 mg/dL (7-20); CALCIUM 9.1 mg/dL (8.4-10.2); CARBON DIOXIDE 32 mmol/L (22-30); CHLORIDE 101 mmol/L (98-107); CREATINE KINASE 163 U/L (55-170); GLUCOSE 107 mg/dL (75-110); POTASSIUM 4.2 mmol/L (3.6-5.0); TOTAL PROTEIN 7.5 g/dL (6.3-8.2)
--- NOTE | 2019-07-28 19:40 | ER Document Report ---
ED General - General Chief Complaint: Chest Pain Stated Complaint: CHEST PAIN Time Seen by Provider: 07/28/19 19:11 Mode of Arrival: Wheelchair Information source: Patient Notes: 74-year-old black male arrives with his ambulatory to the triage with nausea abdominal pain diaphoresis cool and clammy with chest pain as well. He has never had any [place] in the past or chest pain in the past. He had a gastric bypass 2003 and neck fusion in 2019. Patient reports last night he began to have churning of his abdomen and he had 1 bowel movement late last night and then again 2 smaller bowel movements earlier this morning. He then began to have associated chest pain as well. He arrives to triage with vomiting upon getting in wheelchair and within 15 minutes he had EKG and left antecubital IV placed by nursing staff he was given nitroglycerin bring his blood pressure down from 178 systolic to 142 systolic. He continued to have pain and he was given a third nitro which dropped his pressure to 105. The chest pain abdominal pain or 7 out of 10. He was given IV morphine 4 and Zofran 4 IV and aspirin p.o. and is chest pain abdominal pain decreased to [address] Rodriguez was called and he had saw the patient by [address] Durant who advised his EKG did show some ST elevation anteriorly but will wait for troponins to return. TRAVEL OUTSIDE OF THE [place] IN LAST 30 DAYS: No - HPI Onset: Just prior to arrival Onset/Duration: Sudden Quality of pain: Fullness, Other - Patient reports she has symptoms on his chest like someone is sitting on his chest. Severity: Moderate Pain Level: 3 Associated symptoms: None Exacerbated by: Movement, Deep breathing Relieved by: Remaining still - Related Data Allergies/Adverse Reactions: No Known Allergies Allergy (Verified 07/28/19 19:03) Past Medical History - General Information source: Patient, Relative - by bedside - Social History Smoking Status: Former Smoker Cigarette use (# per day): No Chew tobacco use (# tins/day): No Smoking Education Provided: No Frequency of alcohol use: Occasional Drug Abuse: None Lives with: Family Family History: Reviewed & Not Pertinent Patient has suicidal ideation: No Patient has homicidal ideation: No - Past Medical History Cardiac Medical History: Reports: Hx Hypertension Denies: Hx Heart Attack Pulmonary Medical History: Denies: Hx Asthma Neurological Medical History: Denies: Hx Cerebrovascular Accident, Hx Seizures Endocrine Medical History: Reports: Hx Diabetes Mellitus Type 2 Renal/ Medical History: Denies: Hx Peritoneal Dialysis GI Medical History: Denies: Hx Hepatitis, Hx Hiatal Hernia, Hx Ulcer Infectious Medical History: Denies: Hx Hepatitis Past Surgical History: Reports: Hx Cholecystectomy, Hx Orthopedic Surgery - neck/back. Denies: Hx Open Heart Surgery, Hx Pacemaker - Immunizations Hx Diphtheria, Pertussis, Tetanus Vaccination: - unknown Review of Systems - Review of Systems Constitutional: See HPI, Chills, Malaise, Weakness EENT: No symptoms reported Cardiovascular: See HPI, Chest pain, Dizziness, Lightheaded Respiratory: No symptoms reported Gastrointestinal: See HPI, Abdominal pain Genitourinary: No symptoms reported Male Genitourinary: No symptoms reported Musculoskeletal: No symptoms reported Skin: No symptoms reported Hematologic/Lymphatic: No symptoms reported Neurological/Psychological: No symptoms reported Physical Exam - Vital signs Vitals: Resp BP Pulse Ox 24 H 184/92 H 100 07/28/19 18:54 07/28/19 18:54 07/28/19 18:54 Interpretation: Normal - General General appearance: Alert In distress: Mild - HEENT Head: Normocephalic Eyes: Normal Conjunctiva: Normal Cornea: Normal Extraocular movements intact: Yes Eyelashes: Normal Pupils: PERRL Sinus: Normal Nasal: Normal Mouth/Lips: Normal Pharynx: Normal Neck: Normal - Respiratory Respiratory status: No respiratory distress Chest status: Nontender Breath sounds: Normal Chest palpation: Normal - Cardiovascular Rhythm: Regular Heart sounds: Normal auscultation Murmur: No Friction rub: No Kayli's crunch: No - Abdominal Inspection: Normal Distension: No distension Bowel sounds: Normal Tenderness: Nontender Organomegaly: No organomegaly - Back Back: Normal - Extremities General upper extremity: Normal inspection General lower extremity: Edema - +1 pitting edema - Neurological Neuro grossly intact: Yes Cognition: Normal Orientation: AAOx4 Keegan Coma Scale Verbal: Oriented Keegan Coma Scale Motor: Obeys Commands Cranial nerves: Normal Cerebellar coordination: Normal Motor strength normal: LUE, RUE, LLE, RLE - Psychological Associated symptoms: Anxious - Skin Skin Temperature: Warm Skin Moisture: Dry Course - Vital Signs Vital signs: Temp Pulse Resp BP Pulse Ox 15 146/78 H 100 07/28/19 22:31 07/28/19 22:31 07/28/19 22:31 - Laboratory Result Diagrams: 07/28/19 19:03 07/28/19 19:03 Laboratory results interpreted by me: 07/28/19 07/28/19 19:03 19:03 RDW 15.6 H Carbon Dioxide 32 H Alkaline Phosphatase 178 H - Diagnostic Test Radiology reviewed: Reports reviewed - EKG Interpretation by Me EKG shows normal: Sinus rhythm Rate: Normal Rhythm: NSR Critical Care Note - Critical Care Note Total time excluding time spent on procedures (mins): 90 Comments: This case was discussed with Dr. Durant at 195 through the telephone of Dr. Rodriguez who is evaluating this patient. First sets of enzymes are normal as well as other labs. KUB revealed an ileus left lower quadrant and also chest x-ray showed cardiomegaly but no congestive failure.Dr Avila hospitalist saw pt and discussed case with Sarah and myself at 1999. This case actually belongs to Dr. Lees and at 2244 I was alerted by Allison SINGH to this fact. Dr. Lees was called shortly thereafter and he accepted this patient for admission with same orders. Hospitalist was also called to have his name removed. Discharge - Discharge Clinical Impression: Chest pain at rest Abdominal pain Qualifiers: Abdominal location: generalized Qualified Code(s): R10.84 - Generalized abdominal pain Constipation Qualifiers: Constipation type: unspecified constipation type Qualified Code(s): K59.00 - Constipation, unspecified Condition: Good Disposition: ADMITTED INPATIENT Admitting Provider: [facility] Admitted: Telemetry
[2019-07-28 19:46] LABS: CREATINE KINASE MB 2.58 ng/mL (<4.55)
[2019-07-28 19:50] LABS: TROPONIN I < 0.012 ng/mL
--- NOTE | 2019-07-28 20:00 | RADIOLOGY REPORT (SQ) ---
EXAM DESCRIPTION: CHEST SINGLE VIEW COMPLETED DATE/TIME: 07/28/2019 7:39 pm REASON FOR STUDY: cp COMPARISON: 12/09/2014 EXAM PARAMETERS: NUMBER OF VIEWS: One view. TECHNIQUE: Single frontal radiographic view of the chest acquired. RADIATION DOSE: NA LIMITATIONS: None. FINDINGS: LUNGS AND PLEURA: No opacities, masses or pneumothorax. No pleural effusion. MEDIASTINUM AND HILAR STRUCTURES: No masses. Contour normal. HEART AND VASCULAR STRUCTURES: Heart normal in size. Normal vasculature. BONES: No acute findings. HARDWARE: None in the chest. OTHER: No other significant finding. IMPRESSION: NO ACUTE RADIOGRAPHIC FINDING IN THE CHEST. TECHNICAL DOCUMENTATION: JOB ID: [id number] 2010 [employer]- All Rights Reserved Reading location - IP/workstation name: [email or web address]
--- NOTE | 2019-07-28 20:01 | RADIOLOGY REPORT (SQ) ---
EXAM DESCRIPTION: KUB/ABDOMEN (SINGLE VIEW) COMPLETED DATE/TIME: 07/28/2019 7:39 pm REASON FOR STUDY: pain COMPARISON: None. NUMBER OF VIEWS: One view. TECHNIQUE: Supine radiographic image of the abdomen acquired. LIMITATIONS: None. FINDINGS: BOWEL GAS PATTERN: Nonobstructive gas pattern. Moderate retained stool. CALCIFICATIONS: No suspicious calcifications. SOFT TISSUES: No gross mass or suggestion of organomegaly. HARDWARE: None in the abdomen. BONES: No acute fracture. No worrisome bone lesions. OTHER: No other significant finding. IMPRESSION: Possible constipation. TECHNICAL DOCUMENTATION: JOB ID: [id number] 2010 [employer]- All Rights Reserved Reading location - IP/workstation name: [email or web address]
--- NOTE | 2019-07-28 20:07 | EKG REPORT ---
SEVERITY:- OTHERWISE NORMAL ECG - SINUS BRADYCARDIA : Confirmed by: Johnny aPrra MD 28-Jul-2019 20:06:49
--- NOTE | 2019-07-28 20:08 | EKG REPORT ---
SEVERITY:- OTHERWISE NORMAL ECG - SINUS RHYTHM MINIMAL ST DEPRESSION, INFERIOR LEADS MINIMAL ST ELEVATION, ANTERIOR LEADS : Confirmed by: Johnny Parra MD 28-Jul-2019 20:07:05
--- NOTE | 2019-07-28 20:37 | PDOC CONSULTATION ---
Consultation Consult Date: 07/28/19 Provider Consulted: AURY VU History of Present Illness Admission Date/PCP: BEST GUADALUPE MD History of Present Illness: VIKAS GILMAN is a 74 year old male with the following active problems 1. Systemic hypertension 2. Dyslipidemia 3. DM 4. Obesity 5. Weight loss surgery-Gastric bypass 2002 6. C spine fusion 2012 Patient is followed by Dr. Guadalupe. He has stress test done prior to C spine surgery which was unremarkable per Dr. Guadalupe. No prior CAD. Presented with complaints of abdominal and epigastric pain since yesterday. Reports nausea and profound diaphoresis. Was signficantly hypertensive at presentation. I was alerted due to concerns over mild ST elevation in precordial leads. Former cigarette smoker. No familial illnesses. Past Medical History Cardiac Medical History: Reports: Hypertension Denies: Myocardial Infarction Pulmonary Medical History: Denies: Asthma Neurological Medical History: Denies: Seizures Endocrine Medical History: Reports: Diabetes Mellitus Type 2 GI Medical History: Denies: Hepatitis, Hiatal Hernia Hematology: Denies: Anemia, Sickle Cell Disease Past Surgical History Past Surgical History: Reports: Cholecystectomy, Orthopedic Surgery - neck/back Denies: Pacemaker Social History Smoking Status: Former Smoker Electronic Cigarette use?: No Family History Family History: Reviewed & Not Pertinent Parental Family History Reviewed: No - No familiail illnesses Children Family History Reviewed: NA Sibling(s) Family History Reviewed.: NA Medication/Allergy Home Medications: Amlodipine Besylate [Norvasc 5 mg Tablet] 5 mg PO DAILY 04/26/19 Ascorbic Acid [Vitamin C 500 mg Tablet] 500 mg PO DAILY 04/26/19 Aspirin [Aspirin 81 mg Chewable Tablet] 81 mg PO QHS 04/26/19 Baclofen [Baclofen 10 mg Tablet] 10 mg PO PRN PRN 04/26/19 Cyanocobalamin (Vitamin B-12) [Vitamin B-12] 1,000 mcg PO QHS 04/26/19 Ferrous Sulfate [Iron] 325 mg PO DAILY 04/26/19 Fluticasone Propionate [Flovent Diskus] 50 mcg IH PRN PRN 04/26/19 Hydrocodone/Acetaminophen [[employer] 5-325 mg Tablet] 1 tab PO Q6 #14 tablet 04/26 Metformin HCl 500 mg PO BID 04/26/19 Multivitamin [Multiple Vitamins] 1 each PO DAILY 04/26/19 Prazosin HCl 5 mg PO QHS 04/26/19 Pregabalin [Lyrica 75 mg Capsule] 75 mg PO Q12 04/26/19 Allergies/Adverse Reactions: No Known Allergies Allergy (Verified 07/28/19 19:03) Review of Systems Constitutional: PRESENT: as per HPI, fatigue Cardiovascular: PRESENT: chest pain Gastrointestinal: PRESENT: abdominal pain, nausea Physical Exam Vital Signs: Temp Pulse Resp BP Pulse Ox 27 H 116/70 99 07/28/19 19:16 07/28/19 19:16 07/28/19 19:16 Intake & Output 07/27/19 07/28/19 07/29/19 06:59 06:59 06:59 Weight 106.1 kg General appearance: PRESENT: obese Head exam: PRESENT: atraumatic, normocephalic Eye exam: PRESENT: conjunctiva pink, EOMI Mouth exam: PRESENT: dry mucosa Respiratory exam: PRESENT: clear to auscultation josefina, symmetrical, unlabored Cardiovascular exam: PRESENT: RRR, +S1, +S2 Pulses: PRESENT: normal radial pulses GI/Abdominal exam: PRESENT: diminished bowel sounds, distended, soft Rectal exam: PRESENT: deferred Musculoskeletal exam: PRESENT: normal inspection Neurological exam: PRESENT: alert, awake, oriented to person, oriented to place, oriented to time Psychiatric exam: PRESENT: appropriate affect Skin exam: PRESENT: dry, intact, pallor Results Laboratory Results: 07/28/19 19:03 07/28/19 19:03 07/28/19 07/28/19 19:03 19:03 WBC 4.9 RBC 4.74 Hgb 14.3 Hct 43.2 MCV 91 MCH 30.2 MCHC 33.2 RDW 15.6 H Plt Count 196 Seg Neutrophils % 55.3 Sodium 140.2 Potassium 4.2 Chloride 101 Carbon Dioxide 32 H Anion Gap 7 BUN 11 Creatinine 0.90 Est GFR ( Amer) > 60 Glucose 107 Calcium 9.1 Total Bilirubin 0.3 AST 30 Alkaline Phosphatase 178 H Total Protein 7.5 Albumin 3.9 07/28/19 19:03 Creatine Kinase 163 EKG Comments: EKG Independenytly reviweed by me 09/25/2017 0024 SR 84 bpm, normal AV conduction CJd=927 ms 07/28/2019 1858 SR 62 bpm, Normal AV conduction, MALAIKA in anterior leads does not meet criteria for STEMI. 07/28/20191957 SB 47 bpm, Normal AV conduction, MALAIKA in anterior leads does not meet criteria for STEMI. No change compared to previous First Trop -negative. Status: Image reviewed by me - Chest x-ray-no cardiomegaly. No pulmonary edema. No pleural effusion KUB-possible stool Assessment & Plan - Diagnosis (1) Chest pain at rest Is this a current diagnosis for this admission?: Yes Plan: At the time of my assessment patient predominately describes abdominal pain with a component of epigastric pain which is radiating all over his abdomen. No specific complaints of chest pain. Since admission to the hospital and after receiving medications for nausea and morphine he feels much better. Given the fact that initial troponin is negative and 2 serial EKGs showed no si gnificant changes in his ST segment, there is no urgent indication to proceed with cardiac catheterization. If his cardiac biomarkers become positive or he continues to have chest pain as opposed to abdominal pain and his EKG begins to show changes we will lean towards invasive assessment of the coronaries. At the present time he should be admitted with close monitoring with serial troponin assays. (2) Abdominal pain Qualifiers: Abdominal location: generalized Qualified Code(s): R10.84 - Generalized abdominal pain Is this a current diagnosis for this admission?: Yes Plan: Abdominal distention is noted. Patient does report bowel movements. Radiological studies do support constipation. He does have a history of gastric bypass and many of his symptoms suggest an ongoing vagal process with diaphoresis and nausea as well as abdominal pain. We will continue to monitor him.
[2019-07-28 22:09] LABS: APPEARANCE,URINE CLEAR; BILIRUBIN,URINE NEGATIVE (NEGATIVE); COLOR,URINE YELLOW; GLUCOSE, URINE NEGATIVE (NEGATIVE); KETONES,URINE NEGATIVE (NEGATIVE); LEUKOCYTE ESTERASE,URINE NEGATIVE (NEGATIVE); NITRITE,URINE NEGATIVE (NEGATIVE); PROTEIN,URINE 30 mg/dL (NEGATIVE); URINE SPECIFIC GRAVITY 1.015
[2019-07-28] MEDS ORDERED: PROMETHAZINE HCL 25 MG TABLET PO PRN (22:13)
[2019-07-28] MEDS ORDERED: ONDANSETRON 4 MG TAB.RAPDIS PO PRN (22:13)
[2019-07-28] MEDS ORDERED: PROMETHAZINE HCL INJ 25 MG/1 ML VIAL IV PRN (22:13)
[2019-07-28] MEDS ORDERED: ONDANSETRON HCL INJ/PF 4 MG/2 ML SDV IV PRN (22:13)
[2019-07-28] MEDS ORDERED: ACETAMINOPHEN 325 MG TABLET PO PRN (22:13)
[2019-07-28] MEDS ORDERED: BACLOFEN 10 MG TABLET PO PRN (22:23)
[2019-07-28 23:00] LABS: ALBUMIN 3.8 g/dL (3.5-5.0); ALKALINE PHOSPHATASE 176 U/L (38-126); ASPARTATE AMINO TRANSFERASE 29 U/L (17-59); BILIRUBIN,DIRECT 0.3 mg/dL (0.0-0.4); BILIRUBIN,TOTAL 0.3 mg/dL (0.2-1.3); TOTAL PROTEIN 7.3 g/dL (6.3-8.2)
--- NOTE | 2019-07-28 23:01 | PDOC H&P ---
History of Present Illness Admission Date/PCP: 07/28/19 21:32 BEST GUADALUPE MD History of Present Illness: VIKAS GILMAN is a 74 year old male with past medical history of prior gastric bypass, T2DM, HTN, TIA, chronic stable lung nodules who presented to ED with 2-day history of progressive severe abdominal pain and lower chest pain, nausea, constipation. He states his abdominal pain is primarily in his left lower and left upper quadrant but is also diffuse. He denies fever/chil ls/vomiting/diarrhea. He had a large BM on the night prior to admission and another smaller BM the day of admission, however he states after his bowel movements his abdominal pain intensified and prompted ED evaluation. He does note eating some sushi that he obtained from the commissary at the [employer], he is suspicious this may be the inciting factor for his abdominal pain. Lactate normal, other labs notably unremarkable. EKG showed no acute changes and troponin negative. Cardiology consulted by ED and they wanted patient admitted for observation overnight. They also called outside hospital cardiology group who did not see the need for transfer. Past Medical History Cardiac Medical History: Reports: Hypertension Denies: Myocardial Infarction Pulmonary Medical History: Denies: Asthma Neurological Medical History: Denies: Seizures Endocrine Medical History: Reports: Diabetes Mellitus Type 2 GI Medical History: Denies: Hepatitis, Hiatal Hernia Hematology: Denies: Anemia, Sickle Cell Disease Past Surgical History Past Surgical History: Reports: Cholecystectomy, Gastric Bypass Surgery, Orthopedic Surgery - neck/back Denies: Pacemaker Social History Lives with: Family Smoking Status: Former Smoker Electronic Cigarette use?: No - Advance Directive Resuscitation Status: Do Not Resuscitate Surrogate healthcare decision maker:: Family History Family History: Reviewed & Not Pertinent Parental Family History Reviewed: Yes Children Family History Reviewed: Yes Sibling(s) Family History Reviewed.: Yes Medication/Allergy Home Medications: Amlodipine Besylate [Norvasc 5 mg Tablet] 5 mg PO DAILY 04/26/19 Ascorbic Acid [Vitamin C 500 mg Tablet] 500 mg PO BID 04/26/19 Aspirin [Aspirin 81 mg Chewable Tablet] 81 mg PO QHS 04/26/19 Baclofen [Baclofen 10 mg Tablet] 10 mg PO DAILYP PRN 04/26/19 Cyanocobalamin (Vitamin B-12) [Vitamin B-12] 1,000 mcg PO QHS 04/26/19 Fluticasone Propionate [Flovent Diskus] 50 mcg NASL DAILYP PRN 04/26/19 Metformin HCl 500 mg PO BID 04/26/19 Multivitamin [Multiple Vitamins] 1 each PO DAILY 04/26/19 Prazosin HCl 5 mg PO QHS 04/26/19 Pregabalin [Lyrica 75 mg Capsule] 75 mg PO Q12 04/26/19 Allergies/Adverse Reactions: No Known Allergies Allergy (Verified 07/28/19 19:03) Review of Systems All systems: reviewed and no additional remarkable complaints except as stated - See HPI for full ROS, otherwise negative Physical Exam Vital Signs: Temp Pulse Resp BP Pulse Ox 16 130/73 H 100 07/28/19 19:31 07/28/19 19:31 07/28/19 19:31 Intake & Output 07/27/19 07/28/19 07/29/19 06:59 06:59 06:59 Weight 106.1 kg General appearance: PRESENT: no acute distress, cooperative, obese Head exam: PRESENT: atraumatic, normocephalic Eye exam: PRESENT: conjunctiva pink Respiratory exam: PRESENT: clear to auscultation josefina. ABSENT: rales, rhonchi, wheezes Cardiovascular exam: PRESENT: RRR. ABSENT: diastolic murmur, rubs, systolic murmur GI/Abdominal exam: PRESENT: normal bowel sounds, soft, tenderness. ABSENT: distended, guarding, mass, organolmegaly Rectal exam: PRESENT: deferred Musculoskeletal exam: PRESENT: ambulatory Neurological exam: PRESENT: alert, awake, oriented to person, oriented to place, oriented to time, oriented to situation Psychiatric exam: PRESENT: appropriate affect, normal mood Skin exam: PRESENT: dry, intact, warm Results Laboratory Results: 07/28/19 19:03 07/28/19 19:03 07/28/19 07/28/19 07/28/19 19:03 19:03 21:46 WBC 4.9 RBC 4.74 Hgb 14.3 Hct 43.2 MCV 91 MCH 30.2 MCHC 33.2 RDW 15.6 H Plt Count 196 Seg Neutrophils % 55.3 Sodium 140.2 Potassium 4.2 Chloride 101 Carbon Dioxide 32 H Anion Gap 7 BUN 11 Creatinine 0.90 Est GFR ( Amer) > 60 Glucose 107 Lactic Acid 1.4 Calcium 9.1 Total Bilirubin 0.3 AST 30 Alkaline Phosphatase 178 H Total Protein 7.5 Albumin 3.9 Urine Color Urine Appearance Urine pH Ur Specific [place] Urine Protein Urine Glucose (UA) Urine Ketones Urine Blood Urine Nitrite Ur Leukocyte Esterase Urine WBC (Auto) Urine RBC (Auto) 07/28/19 21:52 WBC RBC Hgb Hct MCV MCH MCHC RDW Plt Count Seg Neutrophils % Sodium Potassium Chloride Carbon Dioxide Anion Gap BUN Creatinine Est GFR ( Amer) Glucose Lactic Acid Calcium Total Bilirubin AST Alkaline Phosphatase Total Protein Albumin Urine Color YELLOW Urine Appearance CLEAR Urine pH 7.0 Ur Specific [place] 1.015 Urine Protein 30 H Urine Glucose (UA) NEGATIVE Urine Ketones NEGATIVE Urine Blood NEGATIVE Urine Nitrite NEGATIVE Ur Leukocyte Esterase NEGATIVE Urine WBC (Auto) 1 Urine RBC (Auto) 5 07/28/19 07/28/19 07/28/19 19:03 19:03 21:46 Creatine Kinase 163 CK-MB (CK-2) 2.58 Troponin I < 0.012 0.026 Impressions: Chest X-Ray 07/28/19 19:12 IMPRESSION: NO ACUTE RADIOGRAPHIC FINDING IN THE CHEST. KUB X-Ray 07/28/19 19:25 IMPRESSION: Possible constipation. Assessment and Plan - Diagnosis (1) Abdominal pain Qualifiers: Abdominal location: generalized Qualified Code(s): R10.84 - Generalized abdominal pain Is this a current diagnosis for this admission?: Yes Plan: Unclear etiology Possible food poisoning from bad sushi versus gastric bypass complication versus constipation KUB showed possible constipation Get CT abdomen/pelvis with oral contrast to look for obstruction Lactate normal, doubt ischemic colitis Limit narcotics as these can worsen constipation and bowel mobility/motility Laxatives Consider GI consult in a.m. if he is not improving (2) Chest pain at rest Is this a current diagnosis for this admission?: Yes Plan: Unclear if chest pain is referred pain from abdomen or discrete chest pain sep arate from that symptom EKG did not show acute findings Troponin negative, trending Discussed the case with Dr. Rodriguez in cardiology, he contacted outside cardiology group who did not believe patient required transfer; he did want patient admitted for observation overnight (3) Constipation Qualifiers: Constipation type: unspecified constipation type Qualified Code(s): K59.00 - Constipation, unspecified Is this a current diagnosis for this admission?: Yes Plan: Laxatives (4) History of gastric bypass Is this a current diagnosis for this admission?: Yes Plan: Continue home supplements Patient states he has had pain/problems with his gastric bypass approximately 14 years ago with symptoms similar to how he presented this admission, however he did not seek treatment for this as it resolved spontaneously at home (5) HTN (hypertension) Is this a current diagnosis for this admission?: Yes Plan: Medications (6) T2DM (type 2 diabetes mellitus) Qualifiers: Diabetes mellitus [facility] insulin use: without [facility] use Diabetes mellitus complication status: with hyperglycemia Qualified Code(s): E11.65 - Type 2 diabetes mellitus with hyperglycemia Is this a current diagnosis for this admission?: Yes Plan: Roro BEAVERSu-Cheekta A1c - Time Time Spent with patient: 35 or more minutes Medications reviewed and adjusted accordingly: Yes Anticipated discharge: Home Within: within 48 hours
[2019-07-29] MEDS: PREGABALIN 75 MG CAPSULE PO SCH ×3 (00:40→22:06)
--- NOTE | 2019-07-29 02:15 | ADVANCED CARE ---
- Diagnosis (1) Abdominal pain Diagnosis Current: Yes (2) Chest pain at rest Diagnosis Current: Yes (3) Constipation Diagnosis Current: Yes (4) History of gastric bypass Diagnosis Current: Yes (5) HTN (hypertension) Diagnosis Current: Yes (6) T2DM (type 2 diabetes mellitus) Diagnosis Current: Yes Attendance: patient Resuscitation Status: Do Not Resuscitate Discussion: All aspects of CODE STATUS discussed including chest compressions, cardi oversion, intubation, patient stated he wishes to be DNR/DNI. 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
[2019-07-29 04:51] LABS: ABSOLUTE EOSINOPHILS # (AUTO) 0.1 10^3/uL (0.0-0.6); ABSOLUTE MONOCYTES (AUTO) 0.4 10^3/uL (0.1-1.4); ABSOLUTE NEUT (AUTO) 3.6 10^3/uL (1.7-8.2); BASOPHILS % (AUTO) 0.6 % (0-2); EOSINOPHILS % (AUTO) 1.9 % (0-6); HEMATOCRIT 39.7 % (37.9-51.0); HEMOGLOBIN 13.1 g/dL (13.5-17.0); LYMPHOCYTES % (AUTO) 18.9 % (13-45); MEAN CORPUSCULAR HGB CONC 32.9 g/dL (32.0-36.0); MEAN CORPUSCULAR VOLUME 91 fl (80-97); MONOCYTES % (AUTO) 8.2 % (3-13); PLATELET COUNT 174 10^3/uL (150-450); RED BLOOD COUNT 4.35 10^6/uL (4.35-5.55); RED CELL DISTRIBUTION WIDTH 15.4 % (11.5-14.0); SEGMENTED NEUTROPHILS % (AUTO) 70.4 % (42-78); TOTAL CELLS COUNTED % (AUTO) 100 %; WHITE BLOOD COUNT 5.1 10^3/uL (4.0-10.5)
[2019-07-29 05:19] LABS: ANION GAP 8 (5-19); BLOOD UREA NITROGEN 10 mg/dL (7-20); CALCIUM 8.9 mg/dL (8.4-10.2); CARBON DIOXIDE 27 mmol/L (22-30); CHLORIDE 103 mmol/L (98-107); GLUCOSE 125 mg/dL (75-110); PHOSPHORUS 3.1 mg/dL (2.5-4.5); POTASSIUM 4.7 mmol/L (3.6-5.0)
[2019-07-29 05:25] LABS: NT PRO BNP 59 pg/mL (<125)
[2019-07-29 05:30] LABS: TROPONIN I < 0.012 ng/mL
[2019-07-29] MEDS: HEPARIN SOD (PORCINE) 5,000 UNIT/ML 1 ML VIAL SUBCUT SCH ×3 (05:48→22:06)
[2019-07-29] MEDS ORDERED: FLUTICASONE NASAL SPRAY 50 MCG/SPRY 120 SPRAY/16 GM NASL PRN (06:30)
[2019-07-29] MEDS: INSULIN LISPRO 100 UNIT/ML 3 ML VIAL SUBCUT SCH ×4 (08:06→22:08)
--- NOTE | 2019-07-29 08:30 | PDOC PROGRESS REPORT ---
Subjective Progress Note for:: 07/29/19 Subjective:: This is a 74-year-old patient of mine initially admitted the hospitalist service yesterday because of the complaint for chest pain abdominal pain present in the ER and the ER physicians called me later on but by mistake he called the hospitalist service transport to my service this morning According to the patient's he eating some sushi and other food day before the symptoms start patient was complaining from more abdominal discomfort and distention some the pain and radiating all the way to the chest present in the emergency department initially patient was very diaphoretic nauseating and vomiting in the ER physicians thought patient may be have acute MT with ST elevations . At that point call the Dr. Rodriguez the windows desktop engineer evaluate the patient and patient's EKG and a cardiac enzyme is all stable no sign of any acute ST elevation MT. Patient's at this point admitting in the hospital for the further evaluations with mostly with the abdominal pain discomfort and constipations Patient had a history of the gastric bypass surgery so many years back patient is seen by Dr. Kearney 5 years back have a colonoscopy done. Patient's when I saw it this morning denied any chest pain no short of breath abdominal pain is getting better patient also passing the gas and some watery stool Patient is currently also have a history of the C-spine issues follow the pain management but do not take any narcotics Patient is otherwise feeling much better is on the bedside no other concerns or complaints at this point Discussed with the Dr. Rodriguez windows desktop engineer scheduled the echocardiogram and he does not think patient have anything to do with the heart at this point Discussed with the general surgery Dr. Mcallister waiting for the CT scan report that he evaluate with the patient need a further evaluations with endoscopy or colonoscopy Reason For Visit: ABDOMINAL PAIN, CONSTIPATION, CHEST PAIN Physical Exam Vital Signs: Temp Pulse Resp BP Pulse Ox 98.3 F 62 17 155/79 H 100 07/29/19 00:04 07/29/19 00:04 07/29/19 00:04 07/29/19 00:04 07/29/19 00:04 Intake & Output 07/28/19 07/29/19 07/30/19 06:59 06:59 06:59 Weight 112.5 kg General appearance: PRESENT: no acute distress, well-developed, well-nourished Head exam: PRESENT: atraumatic, normocephalic Eye exam: PRESENT: conjunctiva pink, EOMI, PERRLA. ABSENT: scleral icterus Ear exam: PRESENT: normal external ear exam Mouth exam: PRESENT: moist, tongue midline Neck exam: PRESENT: full ROM. ABSENT: carotid bruit, JVD, lymphadenopathy, thyromegaly Respiratory exam: PRESENT: clear to auscultation josefina Cardiovascular exam: PRESENT: RRR. ABSENT: diastolic murmur, rubs, systolic murmur Pulses: PRESENT: normal [place]alis pedis pul, +2 pedal pulses bilateral Vascular exam: PRESENT: normal capillary refill GI/Abdominal exam: PRESENT: normal bowel sounds, soft. ABSENT: distended, guarding, mass, organolmegaly, rebound, tenderness Rectal exam: PRESENT: deferred Neurological exam: PRESENT: alert, awake, oriented to person, oriented to place, oriented to time, oriented to situation, CN II-XII grossly intact. ABSENT: motor sensory deficit Psychiatric exam: PRESENT: appropriate affect, normal mood. ABSENT: homicidal ideation, suicidal ideation Skin exam: PRESENT: dry, intact, warm. ABSENT: cyanosis, rash Results Laboratory Results: 07/29/19 03:44 07/29/19 03:44 07/28/19 07/28/19 07/28/19 19:03 19:03 19:03 WBC 4.9 RBC 4.74 Hgb 14.3 Hct 43.2 MCV 91 MCH 30.2 MCHC 33.2 RDW 15.6 H Plt Count 196 Seg Neutrophils % 55.3 Sodium 140.2 Potassium 4.2 Chloride 101 Carbon Dioxide 32 H Anion Gap 7 BUN 11 Creatinine 0.90 Est GFR ( Amer) > 60 Glucose 107 Lactic Acid Calcium 9.1 Phosphorus Magnesium Total Bilirubin 0.3 0.3 AST 30 29 Alkaline Phosphatase 178 H 176 H Total Protein 7.5 7.3 Albumin 3.9 3.8 Lipase 127.3 TSH Urine Color Urine Appearance Urine pH Ur Specific [place] Urine Protein Urine Glucose (UA) Urine Ketones Urine Blood Urine Nitrite Ur Leukocyte Esterase Urine WBC (Auto) Urine RBC (Auto) 07/28/19 07/28/19 07/29/19 21:46 21:52 03:44 WBC 5.1 RBC 4.35 Hgb 13.1 L Hct 39.7 MCV 91 MCH 30.0 MCHC 32.9 RDW 15.4 H Plt Count 174 Seg Neutrophils % 70.4 Sodium Potassium Chloride Carbon Dioxide Anion Gap BUN Creatinine Est GFR ( Amer) Glucose Lactic Acid 1.4 Calcium Phosphorus Magnesium Total Bilirubin AST Alkaline Phosphatase Total Protein Albumin Lipase TSH Urine Color YELLOW Urine Appearance CLEAR Urine pH 7.0 Ur Specific [place] 1.015 Urine Protein 30 H Urine Glucose (UA) NEGATIVE Urine Ketones NEGATIVE Urine Blood NEGATIVE Urine Nitrite NEGATIVE Ur Leukocyte Esterase NEGATIVE Urine WBC (Auto) 1 Urine RBC (Auto) 5 07/29/19 07/29/19 03:44 03:44 WBC RBC Hgb Hct MCV MCH MCHC RDW Plt Count Seg Neutrophils % Sodium 137.5 Potassium 4.7 Chloride 103 Carbon Dioxide 27 Anion Gap 8 BUN 10 Creatinine 0.74 Est GFR ( Amer) > 60 Glucose 125 H Lactic Acid Calcium 8.9 Phosphorus 3.1 Magnesium 1.9 Total Bilirubin AST Alkaline Phosphatase Total Protein Albumin Lipase TSH 0.50 Urine Color Urine Appearance Urine pH Ur Specific [place] Urine Protein Urine Glucose (UA) Urine Ketones Urine Blood Urine Nitrite Ur Leukocyte Esterase Urine WBC (Auto) Urine RBC (Auto) 07/28/19 07/28/19 07/28/19 19:03 19:03 21:46 Creatine Kinase 163 CK-MB (CK-2) 2.58 Troponin I < 0.012 0.026 NT-Pro-B Natriuret Pep 07/29/19 03:44 Creatine Kinase CK-MB (CK-2) Troponin I < 0.012 NT-Pro-B Natriuret Pep 59 Impressions: Chest X-Ray 07/28/19 19:12 IMPRESSION: NO ACUTE RADIOGRAPHIC FINDING IN THE CHEST. KUB X-Ray 07/28/19 19:25 IMPRESSION: Possible constipation. Assessment & Plan - Diagnosis (1) Abdominal pain Qualifiers: Abdominal location: generalized Qualified Code(s): R10.84 - Generalized abdominal pain Is this a current diagnosis for this admission?: Yes Plan: We will get the CT scan of the abdomen pelvis with p.o. contrast Continues to clear liquid diets Continues to monitor (2) Chest pain at rest Is this a current diagnosis for this admission?: Yes Plan: Patient serial cardiac enzyme is all negative follow-up with cardiology currently denied any chest pain (3) Constipation Qualifiers: Constipation type: unspecified constipation type Qualified Code(s): K59.00 - Constipation, unspecified Is this a current diagnosis for this admission?: Yes Plan: We will add the MiraLAX and Colace (4) HTN (hypertension) Qualifiers: Hypertension type: essential hypertension Qualified Code(s): I10 - Essential (primary) hypertension Is this a current diagnosis for this admission?: Yes Plan: Continues to current medications (5) History of gastric bypass Is this a current diagnosis for this admission?: Yes Plan: We will add the Protonix 40 mg daily (6) T2DM (type 2 diabetes mellitus) Qualifiers: Diabetes mellitus [facility] insulin use: without superintendent terminal use Diabetes alirio litus complication status: with hyperglycemia Qualified Code(s): E11.65 - Type 2 diabetes mellitus with hyperglycemia Is this a current diagnosis for this admission?: Yes Plan: Currently hold the metformin still continues the sliding scale - Time Time Spent with patient: 25-34 minutes Level of Care: IMCU Medications reviewed and adjusted accordingly: Yes Anticipated discharge: Home Within: Other - Inpatient Certification Based on my medical assessment, after consideration of the patient's comorbidities, presenting symptoms, or acuity I expect that the services needed warrant INPATIENT care.: Yes I certify that my determination is in accordance with my understanding of Medicare's requirements for reasonable and necessary INPATIENT services [42 CFR 412.3e].: Yes Medical Necessity: Significant Comorbidiites Make Outpatient Treatment Too Risky, Need Close Monitoring Due to Risk of Patient Decompensation, Need For IV Fluids Post Hospital Care: D/C Silo Operator Documentation - Plan Summary Plan Summary: Discussed with the patient and the on the bedside regarding the all the test results and the plan discussed with the coordinate care with the consultant nurse discussed with the nursing staff
[2019-07-29] MEDS: DOCUSATE SODIUM 100 MG CAPSULE PO SCH ×2 (09:06→17:13)
[2019-07-29] MEDS: AMLODIPINE BESYLATE 5 MG TABLET PO SCH (09:06)
[2019-07-29] MEDS: POLYETHYLENE GLYCOL 3350 POWDER 17 GM/1 PACKET PO SCH (09:06)
[2019-07-29] MEDS: ASCORBIC ACID 500 MG TABLET PO SCH ×2 (09:07→17:14)
[2019-07-29] MEDS: MULTIVITAMIN TABLET PO SCH (09:07)
[2019-07-29] MEDS ORDERED: PANTOPRAZOLE SODIUM 40 MG TABLET.DR PO SCH (10:00)
--- NOTE | 2019-07-29 11:56 | RADIOLOGY REPORT (SQ) ---
EXAM DESCRIPTION: CT ABD/PELVIS ORAL ONLY COMPLETED DATE/TIME: 07/29/2019 11:01 am REASON FOR STUDY: pain, ?gastric bypass complication, ?ischemia R07.9 CHEST PAIN, UNSPECIFIED COMPARISON: None. TECHNIQUE: CT scan of the abdomen and pelvis performed with oral contrast and no intravenous contras t. Images reviewed with lung, soft tissue, and bone windows. Reconstructed coronal and sagittal MPR i mages reviewed. All images stored on PACS. All CT scanners at this facility use dose modulation, iterative reconstruction, and/or weight based d osing when appropriate to reduce radiation dose to as low as reasonably achievable (ALARA). [facility]: Dose Right [facility]: CareDose [facility]: Dose Right [facility]: Teradose 4D [facility]: [employer] RADIATION DOSE: CT Rad equipment meets quality standard of care and radiation dose reduction techniq ues were employed. CTDIvol: 22.9 mGy. DLP: 1248 mGy-cm.mGy. LIMITATIONS: None. FINDINGS: LOWER CHEST: No significant findings. No nodules or infiltrates. NON-CONTRASTED LIVER, SPLEEN, ADRENALS: Evaluation limited by lack of IV contrast. Slightly nodular appearance of both adrenal glands, stable appearance when compared to prior CT chest exams dating mendoza k to 2014. No identified significant masses. PANCREAS: No masses. No peripancreatic inflammatory changes. GALLBLADDER: No identified stones by CT criteria. No inflammatory changes to suggest cholecystitis. RIGHT KIDNEY AND URETER: No solid masses. No significant calcification. No hydronephrosis or hydroure ter. LEFT KIDNEY AND URETER: No solid masses. No significant calcification. No hydronephrosis or hydrouret er. AORTA AND RETROPERITONEUM: No aneurysm. No retroperitoneal masses or adenopathy. BOWEL AND PERITONEAL CAVITY: Previous gastric surgery. No obvious masses or inflammatory changes. No free fluid. APPENDIX: Normal. PELVIS, BLADDER, AND ABDOMINAL WALL: No abnormal pelvic masses. No abdominal wall hernias. Bladder un remarkable. BONES: No significant findings. Degenerative changes in the spine. Sclerotic lesions in the right a nd left iliac bone. OTHER: No other significant finding. IMPRESSION: 1. SCLEROTIC LESIONS IN THE RIGHT AND LEFT ILIAC BONE. 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 CA NNOT EXCLUDE OSTEOBLASTIC METASTASES. RECOMMEND CORRELATION WITH ANY HISTORY OF MALIGNANCY INCLUDING PROSTATE CANCER. IF THERE IS CLINICAL SUSPICION, THEN MAY CONSIDER BONE SCAN. 2. PREVIOUS GASTRIC BYPASS. NO ABNORMAL APPEARANCE. 3. STABLE MILD NODULARITY OF THE ADRENAL GLANDS. 4. NO OTHER SIGNIFICANT OR ACUTE ABDOMINAL PROCESS. TECHNICAL DOCUMENTATION: JOB ID: [id number] Quality ID # [id number]: Final reports with documentation of one or more dose reduction techniques (e.g., Au tomated exposure control, adjustment of the mA and/or kV according to patient size, use of iterative reconstruction technique) 2010 [employer]- All Rights Reserved Reading location - IP/workstation name: [email or web address]
--- NOTE | 2019-07-29 15:45 | PDOC CONSULTATION ---
Consultation Consult Date: 07/29/19 Attending physician:: BEST GUADALUPE Provider Consulted: KARINA SOLIMAN Consult reason:: Abdominal pain History of Present Illness Admission Date/PCP: 07/28/19 21:32 BEST GUADALUPE MD History of Present Illness: VIKAS GILMAN is a 74 year old male Patient is admitted to the hospital in the care of Dr. Guadalupe for approximately 2-day history of abdominal pain, nausea, some anorexia, difficulty with bowel movements. He has a remote history of Audelia-en-Y gastric bypass. Patient underwent CT scan of the abdomen and pelvis with oral contrast which showed no evidence of intra-abdominal fluid, leak, air, or inflammatory changes. Surgery was consulted for evaluation. Since admission patient had a cardiac work-up because of the nonlocalized nature of the abdominal pain and this showed no evidence of myocardial infarction. 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 Last colonoscopy 5 years ago with unremarkable findings. He feels better, tolerating clear liquid and wants to go home. He had some flatus but no bowel movement. Past Medical History Past Medical History: History of neurologic complication following cervical spine surgery, left eye weakness; patient is a DNR Cardiac Medical History: Reports: Hypertension Denies: Myocardial Infarction Pulmonary Medical History: Denies: Asthma Neurological Medical History: Denies: Seizures Endocrine Medical History: Reports: Diabetes Mellitus Type 2 GI Medical History: Denies: Hepatitis, Hiatal Hernia Hematology: Denies: Anemia, Sickle Cell Disease Past Surgical History Past Surgical History: Reports: Cholecystectomy, Gastric Bypass Surgery, Orthopedic Surgery - neck/back Denies: Pacemaker Social History Information Source: Patient Lives with: Family Smoking Status: Former Smoker Electronic Cigarette use?: No Frequency of Alcohol Use: None Hx Recreational Drug Use: No - Advance Directive Resuscitation Status: Do Not Resuscitate Family History Family History: None, Reviewed & Not Pertinent Parental Family History Reviewed: No Children Family History Reviewed: No Sibling(s) Family History Reviewed.: No Medication/Allergy Home Medications: Amlodipine Besylate [Norvasc 5 mg Tablet] 5 mg PO DAILY 04/26/19 Ascorbic Acid [Vitamin C 500 mg Tablet] 500 mg PO BID 04/26/19 Aspirin [Aspirin 81 mg Chewable Tablet] 81 mg PO QHS 04/26/19 Baclofen [Baclofen 10 mg Tablet] 10 mg PO DAILYP PRN 04/26/19 Cyanocobalamin (Vitamin B-12) [Vitamin B-12] 1,000 mcg PO QHS 04/26/19 Fluticasone Propionate [Flovent Diskus] 50 mcg NASL DAILYP PRN 04/26/19 Metformin HCl 500 mg PO BID 04/26/19 Multivitamin [Multiple Vitamins] 1 each PO DAILY 04/26/19 Prazosin HCl 5 mg PO QHS 04/26/19 Pregabalin [Lyrica 75 mg Capsule] 75 mg PO Q12 04/26/19 Allergies/Adverse Reactions: No Known Allergies Allergy (Verified 07/28/19 19:03) Review of Systems Constitutional: PRESENT: as per HPI - Patient denies constitutional symptoms Eyes: ABSENT: visual disturbances Ears: ABSENT: hearing changes Cardiovascular: ABSENT: chest pain, dyspnea on exertion, edema, orthropnea, palpitations Respiratory: ABSENT: cough, hemoptysis Gastrointestinal: PRESENT: as per HPI Neurological: PRESENT: other - Neck numbness and tingling in his upper extremities. Psychiatric: ABSENT: anxiety, depression, homidical ideation, suicidal ideation Physical Exam Vital Signs: Temp Pulse Resp BP Pulse Ox 97.6 F 59 L 17 136/81 H 99 07/29/19 08:05 07/29/19 10:48 07/29/19 10:48 07/29/19 10:48 07/29/19 10:48 Intake & Output 07/28/19 07/29/19 07/30/19 06:59 06:59 06:59 Intake Total 750 Balance 750 Weight 112.5 kg General appearance: PRESENT: no acute distress Head exam: PRESENT: normocephalic Eye exam: PRESENT: EOMI Mouth exam: PRESENT: dry mucosa Throat exam: PRESENT: other - No adenopathy: Scar back of the neck Neck exam: PRESENT: other - Limited range of motion Respiratory exam: PRESENT: other - Breath sounds distant bilaterally Cardiovascular exam: PRESENT: RRR Pulses: PRESENT: normal carotid pulses, normal radial pulses, normal femoral pulses GI/Abdominal exam: PRESENT: other - Abdomen with well-healed midline scar consistent previous surgery. The abdomen is slightly distended, but no peritoneal signs, no rigidity, no evidence of hernia and no organomegaly. Rectal exam: PRESENT: deferred Extremities exam: PRESENT: other - Limited assessment due to patient being in bed Neurological exam: PRESENT: oriented to person, oriented to place, oriented to time, oriented to situation Psychiatric exam: PRESENT: appropriate affect Skin exam: PRESENT: dry Results Laboratory Results: 07/29/19 03:44 07/29/19 03:44 07/28/19 07/28/19 07/28/19 19:03 19:03 19:03 WBC 4.9 RBC 4.74 Hgb 14.3 Hct 43.2 MCV 91 MCH 30.2 MCHC 33.2 RDW 15.6 H Plt Count 196 Seg Neutrophils % 55.3 Sodium 140.2 Potassium 4.2 Chloride 101 Carbon Dioxide 32 H Anion Gap 7 BUN 11 Creatinine 0.90 Est GFR ( Amer) > 60 Glucose 107 Lactic Acid Calcium 9.1 Phosphorus Magnesium Total Bilirubin 0.3 0.3 AST 30 29 Alkaline Phosphatase 178 H 176 H Total Protein 7.5 7.3 Albumin 3.9 3.8 Lipase 127.3 TSH Urine Color Urine Appearance Urine pH Ur Specific [place] Urine Protein Urine Glucose (UA) Urine Ketones Urine Blood Urine Nitrite Ur Leukocyte Esterase Urine WBC (Auto) Urine RBC (Auto) 07/28/19 07/28/19 07/29/19 21:46 21:52 03:44 WBC 5.1 RBC 4.35 Hgb 13.1 L Hct 39.7 MCV 91 MCH 30.0 MCHC 32.9 RDW 15.4 H Plt Count 174 Seg Neutrophils % 70.4 Sodium Potassium Chloride Carbon Dioxide Anion Gap BUN Creatinine Est GFR ( Amer) Glucose Lactic Acid 1.4 Calcium Phosphorus Magnesium Total Bilirubin AST Alkaline Phosphatase Total Protein Albumin Lipase TSH Urine Color YELLOW Urine Appearance CLEAR Urine pH 7.0 Ur Specific [place] 1.015 Urine Protein 30 H Urine Glucose (UA) NEGATIVE Urine Ketones NEGATIVE Urine Blood NEGATIVE Urine Nitrite NEGATIVE Ur Leukocyte Esterase NEGATIVE Urine WBC (Auto) 1 Urine RBC (Auto) 5 07/29/19 07/29/19 03:44 03:44 WBC RBC Hgb Hct MCV MCH MCHC RDW Plt Count Seg Neutrophils % Sodium 137.5 Potassium 4.7 Chloride 103 Carbon Dioxide 27 Anion Gap 8 BUN 10 Creatinine 0.74 Est GFR ( Amer) > 60 Glucose 125 H Lactic Acid Calcium 8.9 Phosphorus 3.1 Magnesium 1.9 Total Bilirubin AST Alkaline Phosphatase Total Protein Albumin Lipase TSH 0.50 Urine Color Urine Appearance Urine pH Ur Specific [place] Urine Protein Urine Glucose (UA) Urine Ketones Urine Blood Urine Nitrite Ur Leukocyte Esterase Urine WBC (Auto) Urine RBC (Auto) 07/28/19 07/28/19 07/28/19 19:03 19:03 21:46 Creatine Kinase 163 CK-MB (CK-2) 2.58 Troponin I < 0.012 0.026 NT-Pro-B Natriuret Pep 07/29/19 07/29/19 03:44 09:48 Creatine Kinase CK-MB (CK-2) Troponin I < 0.012 < 0.012 NT-Pro-B Natriuret Pep 59 Impressions: Chest X-Ray 07/28/19 19:12 IMPRESSION: NO ACUTE RADIOGRAPHIC FINDING IN THE CHEST. KUB X-Ray 07/28/19 19:25 IMPRESSION: Possible constipation. Abdomen/Pelvis CT 07/29/19 07:30 IMPRESSION: 1. SCLEROTIC LESIONS IN THE RIGHT AND LEFT ILIAC BONE. 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 CANNOT EXCLUDE OSTEOBLASTIC METASTASES. RECOMMEND CORRELATION WITH ANY HISTORY OF MALIGNANCY INCLUDING PROSTATE CANCER. IF THERE IS CLINICAL SUSPICION, THEN MAY CONSIDER BONE SCAN. 2. PREVIOUS GASTRIC BYPASS. NO ABNORMAL APPEARANCE. 3. STABLE MILD NODULARITY OF THE ADRENAL GLANDS. 4. NO OTHER SIGNIFICANT OR ACUTE ABDOMINAL PROCESS. Assessment & Plan - Diagnosis (1) Abdominal pain Is this a current diagnosis for this admission?: Yes Plan: Impression: Subacute abdominal pain examination and CT scan findings this afternoon are unremarkable for any significant intra-abdominal pathology Recommendations: 1. Explained my findings to the patient; no indication for surgical intervention 2. Supportive therapy; reconsult surgery if clinically indicated 3. 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: without care home use Diabetes mellitus complication status: with hyperglycemia Qualified Code(s): E11.65 - Type 2 diabetes mellitus with hyperglycemia Is this a current diagnosis for this admission?: Yes - Time Time Spent: 30 to 50 Minutes Smoking Cessation Education: 3 to 10 minutes Medications reviewed and adjusted accordingly: Yes Anticipated discharge: Home - Inpatient Certification Based on my medical assessment, after consideration of the patient's comorbidities, presenting symptoms, or acuity I expect that the services needed warrant INPATIENT care.: Yes I certify that my determination is in accordance with my understanding of Medicare's requirements for reasonable and necessary INPATIENT services [42 CFR 412.3e].: Yes Medical Necessity: Need For IV Fluids
--- NOTE | 2019-07-29 16:52 | XCELERA REPORT ---
[address] [address] Transthoracic Echocardiogram Report Name: VIKAS GILMAN Age: 74 yrs Gender: Male : 1945 Patient Status: Inpatient Patient Location: [address] [place] [address] Study Date: 07/29/2019 11:35 AM Height: 71 in Weight: 248 lb BSA: 2.3 m2 Procedure: A complete two-dimensional transthoracic echocardiogram was performed (2D, M-mode, spectral and color flow Doppler). The study was technically difficult with many images being suboptimal in quality. Reason For Study: CHEST PAIN Previous Evaluation: No previous studies were available. History: Chest pain. Obesity. HTN. Dyslipidemia. Diabetes. Ordering Physician: BEST GUADALUPE Performed By: Aleksandra Lemus Interpretation Summary The study was technically difficult with many images being suboptimal in quality. Left ventricular systolic function is normal. The Ejection Fraction estimate is 55-60% The right ventricle is normal in size and function. There is no mitral regurgitation noted. There is no aortic valve stenosis There is a trace amount of tricuspid regurgitation Minimal pericardial effusion. MMode/2D Measurements & Calculations IVSd: 1.1 cm LVIDd: 4.5 cm FS: 39.6 % Ao root diam: 2.9 cm LVIDs: 2.7 cm EDV(Teich): 94.1 ml Ao root area: 6.8 cm2 LVPWd: 1.1 cm ESV(Teich): 27.9 ml LA dimension: 2.8 cm EF(Teich): 70.3 % Doppler Measurements & Calculations MV E max miguelangel: MV P1/2t max miguelangel: Ao V2 max: LV V1 max P.4 cm/sec 83.4 cm/sec 128.0 cm/sec 4.6 mmHg MV A max miguelangel: MV P1/2t: 68.1 msec Ao max PG: LV V1 max: 89.8 cm/sec MVA(P1/2t): 3.2 cm2 6.6 mmHg 107.1 cm/sec MV E/A: 0.94 MV dec slope: 359.0 cm/sec2 MV dec time: 0.23 sec PA V2 max: PI end-d miguelangel: TR max miguelangel: MV P1/2t-pr_phl: 74.5 cm/sec 100.4 cm/sec 245.7 cm/sec 68.1 msec PA max PG: TR max P.2 mmHg 24.1 mmHg Left Ventricle The left ventricle is normal in size. There is moderate concentric left ventricular hypertrophy. Left ventricular systolic function is normal. The Ejection Fraction estimate is 55-60%. Doppler measurements suggest impaired left ventricular relaxation, which is associated with grade I/IV or mild diastolic dysfunction. Regional wall motion abnormalities cannot be excluded due to limited visualization. Right Ventricle The right ventricle is normal in size and function. Atria Right atrium not well visualized secondary to technical limitations. The left atrial size is normal. Mitral Valve The mitral valve is grossly normal. There is no mitral regurgitation noted. Aortic Valve The aortic valve is grossly normal. The aortic valve opens well. The aortic valve is normal in structure and function. The aortic valve is trileaflet. There is no aortic valve stenosis. No aortic regurgitation is present. Tricuspid Valve The tricuspid valve is not well visualized secondary to technical limitations. There is no tricuspid stenosis. There is a trace amount of tricuspid regurgitation. Tricuspid regurgitation jet envelope not well defined to measure RV systolic pressure accurately. Pulmonic Valve The pulmonic valve is not well visualized. There is a mild amount of pulmonic regurgitation. Great Vessels The aortic root is normal size. The inferior vena cava appeared normal and decreased > 50% with respiration (RAP 5-10 mmHg). Effusions Minimal pericardial effusion. : BEST GUADALUPE Anil
--- NOTE | 2019-07-29 16:59 | PDOC PROGRESS REPORT ---
Subjective Progress Note for:: 07/29/19 Subjective:: Patient eating food, sitting up at the dege of bed. Spouse present. Overnight syntpoms have resolved. Was seen by Surgical service. No acute problem was found. they have signed off. No chest pain. Troponin is negative, Reason For Visit: ABDOMINAL PAIN, CONSTIPATION, CHEST PAIN Physical Exam Vital Signs: Temp Pulse Resp BP Pulse Ox 97.6 F 59 L 17 136/81 H 99 07/29/19 08:05 07/29/19 10:48 07/29/19 10:48 07/29/19 10:48 07/29/19 10:48 Intake & Output 07/28/19 07/29/19 07/30/19 06:59 06:59 06:59 Intake Total 750 Balance 750 Weight 112.5 kg General appearance: PRESENT: no acute distress, cooperative, obese, well- developed Head exam: PRESENT: atraumatic, normocephalic Eye exam: PRESENT: conjunctiva pink, EOMI Mouth exam: PRESENT: moist Respiratory exam: PRESENT: clear to auscultation josefina, symmetrical, unlabored Cardiovascular exam: PRESENT: RRR, +S1, +S2 Pulses: PRESENT: normal radial pulses GI/Abdominal exam: PRESENT: distended, soft Rectal exam: PRESENT: deferred Neurological exam: PRESENT: alert, awake, oriented to person, oriented to place, oriented to time, oriented to situation Psychiatric exam: PRESENT: appropriate affect Skin exam: PRESENT: dry, intact, normal color Results Laboratory Results: 07/29/19 03:44 07/29/19 03:44 07/28/19 07/28/19 07/28/19 19:03 19:03 19:03 WBC 4.9 RBC 4.74 Hgb 14.3 Hct 43.2 MCV 91 MCH 30.2 MCHC 33.2 RDW 15.6 H Plt Count 196 Seg Neutrophils % 55.3 Sodium 140.2 Potassium 4.2 Chloride 101 Carbon Dioxide 32 H Anion Gap 7 BUN 11 Creatinine 0.90 Est GFR ( Amer) > 60 Glucose 107 Lactic Acid Calcium 9.1 Phosphorus Magnesium Total Bilirubin 0.3 0.3 AST 30 29 Alkaline Phosphatase 178 H 176 H Total Protein 7.5 7.3 Albumin 3.9 3.8 Lipase 127.3 TSH Urine Color Urine Appearance Urine pH Ur Specific [place] Urine Protein Urine Glucose (UA) Urine Ketones Urine Blood Urine Nitrite Ur Leukocyte Esterase Urine WBC (Auto) Urine RBC (Auto) 07/28/19 07/28/19 07/29/19 21:46 21:52 03:44 WBC 5.1 RBC 4.35 Hgb 13.1 L Hct 39.7 MCV 91 MCH 30.0 MCHC 32.9 RDW 15.4 H Plt Count 174 Seg Neutrophils % 70.4 Sodium Potassium Chloride Carbon Dioxide Anion Gap BUN Creatinine Est GFR ( Amer) Glucose Lactic Acid 1.4 Calcium Phosphorus Magnesium Total Bilirubin AST Alkaline Phosphatase Total Protein Albumin Lipase TSH Urine Color YELLOW Urine Appearance CLEAR Urine pH 7.0 Ur Specific [place] 1.015 Urine Protein 30 H Urine Glucose (UA) NEGATIVE Urine Ketones NEGATIVE Urine Blood NEGATIVE Urine Nitrite NEGATIVE Ur Leukocyte Esterase NEGATIVE Urine WBC (Auto) 1 Urine RBC (Auto) 5 07/29/19 07/29/19 03:44 03:44 WBC RBC Hgb Hct MCV MCH MCHC RDW Plt Count Seg Neutrophils % Sodium 137.5 Potassium 4.7 Chloride 103 Carbon Dioxide 27 Anion Gap 8 BUN 10 Creatinine 0.74 Est GFR ( Amer) > 60 Glucose 125 H Lactic Acid Calcium 8.9 Phosphorus 3.1 Magnesium 1.9 Total Bilirubin AST Alkaline Phosphatase Total Protein Albumin Lipase TSH 0.50 Urine Color Urine Appearance Urine pH Ur Specific [place] Urine Protein Urine Glucose (UA) Urine Ketones Urine Blood Urine Nitrite Ur Leukocyte Esterase Urine WBC (Auto) Urine RBC (Auto) 07/28/19 07/28/19 07/28/19 19:03 19:03 21:46 Creatine Kinase 163 CK-MB (CK-2) 2.58 Troponin I < 0.012 0.026 NT-Pro-B Natriuret Pep 07/29/19 07/29/19 07/29/19 03:44 09:48 15:32 Creatine Kinase CK-MB (CK-2) Troponin I < 0.012 < 0.012 < 0.012 NT-Pro-B Natriuret Pep 59 Impressions: Chest X-Ray 07/28/19 19:12 IMPRESSION: NO ACUTE RADIOGRAPHIC FINDING IN THE CHEST. KUB X-Ray 07/28/19 19:25 IMPRESSION: Possible constipation. Abdomen/Pelvis CT 07/29/19 07:30 IMPRESSION: 1. SCLEROTIC LESIONS IN THE RIGHT AND LEFT ILIAC BONE. 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 CANNOT EXCLUDE OSTEOBLASTIC METASTASES. RECOMMEND CORRELATION WITH ANY HISTORY OF MALIGNANCY INCLUDING PROSTATE CANCER. IF THERE IS CLINICAL SUSPICION, THEN MAY CONSIDER BONE SCAN. 2. PREVIOUS GASTRIC BYPASS. NO ABNORMAL APPEARANCE. 3. STABLE MILD NODULARITY OF THE ADRENAL GLANDS. 4. NO OTHER SIGNIFICANT OR ACUTE ABDOMINAL PROCESS. Assessment & Plan - Diagnosis (1) Chest pain at rest Is this a current diagnosis for this admission?: Yes Plan: Predominantly epigastric pain This has resolved Cardiac bio markers do not support myocardial ischemia EKG non -diagnostic of myocardial ischemia. Serial EKG showed no change No risk stratification needed at this time. Echo showed poor quality study due to obese body habitus and poor acoustic windows LVEF 55-60% Unable to exclude wall motion abnormalities No gross valve lesion Mild diastolic dysfunction Minimal pericardial effusion (2) Abdominal pain Qualifiers: Abdominal location: generalized Qualified Code(s): R10.84 - Generalized abdominal pain Is this a current diagnosis for this admission?: Yes Plan: Seen by surgical service No acute pathology noted They have signed off
[2019-07-29] MEDS: PANTOPRAZOLE SODIUM 40 MG TABLET.DR PO SCH (17:14)
[2019-07-29] MEDS ORDERED: (PENDING PHARMACY ID) (Prazosin Hcl [Prazosin Hcl] 5 MG) PO SCH (22:00)
[2019-07-29] MEDS ORDERED: ASPIRIN 81 MG TABLET, CHEWABLE PO SCH (22:00)
[2019-07-29] MEDS ORDERED: CYANOCOBALAMIN (VITAMIN B-12) 1,000 MCG TABLET PO SCH (22:00)
[2019-07-29] MEDS ORDERED: DOXAZOSIN MESYLATE 4 MG TABLET PO SCH (22:00)
[2019-07-30] MEDS: HEPARIN SOD (PORCINE) 5,000 UNIT/ML 1 ML VIAL SUBCUT SCH (05:40)
[2019-07-30 05:54] LABS: ABSOLUTE EOSINOPHILS # (AUTO) 0.2 10^3/uL (0.0-0.6); ABSOLUTE LYMPHOCYTES (AUTO) 1.2 10^3/uL (0.5-4.7); ABSOLUTE MONOCYTES (AUTO) 0.5 10^3/uL (0.1-1.4); ABSOLUTE NEUT (AUTO) 1.8 10^3/uL (1.7-8.2); BASOPHILS % (AUTO) 0.5 % (0-2); EOSINOPHILS % (AUTO) 5.2 % (0-6); HEMATOCRIT 38.9 % (37.9-51.0); HEMOGLOBIN 13.1 g/dL (13.5-17.0); LYMPHOCYTES % (AUTO) 33.3 % (13-45); MEAN CORPUSCULAR HEMOGLOBIN 30.4 pg (27.0-33.4); MEAN CORPUSCULAR HGB CONC 33.6 g/dL (32.0-36.0); MEAN CORPUSCULAR VOLUME 91 fl (80-97); PLATELET COUNT 183 10^3/uL (150-450); RED CELL DISTRIBUTION WIDTH 15.2 % (11.5-14.0); TOTAL CELLS COUNTED % (AUTO) 100 %; WHITE BLOOD COUNT 3.7 10^3/uL (4.0-10.5)
[2019-07-30 06:08] LABS: BLOOD UREA NITROGEN 11 mg/dL (7-20); CALCIUM 8.7 mg/dL (8.4-10.2); CHLORIDE 100 mmol/L (98-107); GLUCOSE 101 mg/dL (75-110); POTASSIUM 4.3 mmol/L (3.6-5.0)
[2019-07-30 06:13] LABS: CARBON DIOXIDE 32 mmol/L (22-30)
[2019-07-30 06:19] LABS: ANION GAP 6 (5-19)
[2019-07-30] MEDS: INSULIN LISPRO 100 UNIT/ML 3 ML VIAL SUBCUT SCH ×2 (07:35→14:04)
[2019-07-30] MEDS: MULTIVITAMIN TABLET PO SCH (09:10)
[2019-07-30] MEDS: POLYETHYLENE GLYCOL 3350 POWDER 17 GM/1 PACKET PO SCH (09:10)
[2019-07-30] MEDS: AMLODIPINE BESYLATE 5 MG TABLET PO SCH (09:10)
[2019-07-30] MEDS: DOCUSATE SODIUM 100 MG CAPSULE PO SCH (09:10)
[2019-07-30] MEDS: ASCORBIC ACID 500 MG TABLET PO SCH (09:10)
[2019-07-30] MEDS: PANTOPRAZOLE SODIUM 40 MG TABLET.DR PO SCH (09:10)
[2019-07-30] MEDS: PREGABALIN 75 MG CAPSULE PO SCH (09:10)
--- NOTE | 2019-07-30 13:23 | PDOC DISCHARGE SUMMARY ---
Impression - Admit/DC Date/PCP Admission Date/Primary Care Provider: 07/28/19 21:32 BEST GUADALUPE MD Discharge Date: 07/30/19 - Discharge Diagnosis (1) Abdominal pain Is this a current diagnosis for this admission?: Yes (2) Chest pain at rest Is this a current diagnosis for this admission?: Yes (3) Constipation Is this a current diagnosis for this admission?: Yes (4) HTN (hypertension) Is this a current diagnosis for this admission?: Yes (5) History of gastric bypass Is this a current diagnosis for this admission?: Yes (6) T2DM (type 2 diabetes mellitus) Is this a current diagnosis for this admission?: Yes - Additional Information Resuscitation Status: Do Not Resuscitate Discharge Diet: Diabetic Discharge Activity: Activity As Tolerated Referrals: AURY VU MD [ACTIVE STAFF] - (left message at office please call for an appointment on friday) BEST GUADALUPE MD [Primary Care Provider] - 08/03/19 1:45 pm Prescriptions: Pantoprazole Sodium [Protonix [address] Tablet] 40 mg PO DAILY #30 tablet. Home Medications: Amlodipine Besylate [Norvasc 5 mg Tablet] 5 mg PO DAILY 04/26/19 Ascorbic Acid [Vitamin C 500 mg Tablet] 500 mg PO BID 04/26/19 Aspirin [Aspirin 81 mg Chewable Tablet] 81 mg PO QHS 04/26/19 Baclofen [Baclofen 10 mg Tablet] 10 mg PO DAILYP PRN 04/26/19 Cyanocobalamin (Vitamin B-12) [Vitamin B-12] 1,000 mcg PO QHS 04/26/19 Fluticasone Propionate [Flovent Diskus] 50 mcg NASL DAILYP PRN 04/26/19 Metformin HCl 500 mg PO BID 04/26/19 Multivitamin [Multiple Vitamins] 1 each PO DAILY 04/26/19 Prazosin HCl 5 mg PO QHS 04/26/19 Pregabalin [Lyrica 75 mg Capsule] 75 mg PO Q12 04/26/19 Pantoprazole Sodium [Protonix [address] Tablet] 40 mg PO DAILY #30 tablet. 07/30/19 History of Present Illiness History of Present Illness: VIKAS GILMAN is a 74 year old malePresenting the emergency department with a complaint of chest pain abdominal painAnd patient is ruled out for acute coronary syndrome by cardiology in the ER and patient admitting in the hospital for further evaluations for possible gastroenteritis Patient's had a echocardiogram done was all stable and EKG and cardiac enzyme is all negative Hospital Course Hospital Course: There is a 74-year-old male presenting the emergency department with a complaint for chest pain abdominal pain and initial work-up in the emergency department including the EKG and cardiac enzyme was all stable. 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 and no sign of any acute coronary syndromes Patient's main complaint was abdominal pain for the last couple of days because of the patient ate some sushi and then patient started developing the problems and initially patient's KUB was suggest the constipation and patient's admitting in the hospital for further evaluations Patient CT abdomen and pelvis did not show any acute finding with the previous history of the gastric bypass and the patient seen by general surgery and suggest no need for any further interventions And had echocardiogram was done was all stable's and cardiology cleared the patient at this point and patients did very well p.o. intake is good walking the hallway without any problems Patients have a CT scan of the abdomen and pelvis suggest some lytic lesion on the pelvic area which the bone scan was done with the pending reports will foll ow next week in the office Patient's recent PSA in January was all normal patient up-to-date with colonoscopy Discussed with the patient and the regarding the patient's current conditions follow in a 1 week in office will follow the bone scan report Physical Exam Vital Signs: Temp Pulse Resp BP Pulse Ox 97.9 F 73 17 142/82 H 100 07/30/19 07:55 07/30/19 07:55 07/30/19 07:55 07/30/19 07:55 07/30/19 07:55 Intake & Output 07/29/19 07/30/19 07/31/19 06:59 06:59 06:59 Intake Total 1858 Balance 1858 Weight 112.5 kg 112.4 kg General appearance: PRESENT: no acute distress, well-developed, well-nourished Head exam: PRESENT: atraumatic, normocephalic Eye exam: PRESENT: conjunctiva pink, EOMI, PERRLA. ABSENT: scleral icterus Ear exam: PRESENT: normal external ear exam Mouth exam: PRESENT: moist, tongue midline Neck exam: ABSENT: carotid bruit, JVD, lymphadenopathy, thyromegaly Respiratory exam: PRESENT: clear to auscultation josefina. ABSENT: rales, rhonchi, wheezes Cardiovascular exam: PRESENT: RRR. ABSENT: diastolic murmur, rubs, systolic murmur Pulses: PRESENT: normal dorsalis pedis pul Vascular exam: PRESENT: normal capillary refill GI/Abdominal exam: PRESENT: normal bowel sounds, soft. ABSENT: distended, guarding, mass, organolmegaly, rebound, tenderness Rectal exam: PRESENT: deferred Extremities exam: PRESENT: full ROM. ABSENT: calf tenderness, clubbing, pedal edema Neurological exam: PRESENT: alert, awake, oriented to person, oriented to place, oriented to time, oriented to situation, CN II-XII grossly intact. ABSENT: motor sensory deficit Psychiatric exam: PRESENT: appropriate affect, normal mood. ABSENT: homicidal ideation, suicidal ideation Skin exam: PRESENT: dry, intact, warm. ABSENT: cyanosis, rash Results Laboratory Results: WBC 3.7 10^3/uL (4.0-10.5) L 07/30/19 04:42 RBC 4.30 10^6/uL (4.35-5.55) L 07/30/19 04:42 Hgb 13.1 g/dL (13.5-17.0) L 07/30/19 04:42 Hct 38.9 % (37.9-51.0) 07/30/19 04:42 MCV 91 fl (80-97) 07/30/19 04:42 MCH 30.4 pg (27.0-33.4) 07/30/19 04:42 MCHC 33.6 g/dL (32.0-36.0) 07/30/19 04:42 RDW 15.2 % (11.5-14.0) H 07/30/19 04:42 Plt Count 183 10^3/uL (150-450) 07/30/19 04:42 Lymph % (Auto) 33.3 % (13-45) 07/30/19 04:42 [place] % (Auto) 14.0 % (3-13) H 07/30/19 04:42 Eos % (Auto) 5.2 % (0-6) 07/30/19 04:42 Baso % (Auto) 0.5 % (0-2) 07/30/19 04:42 Absolute Neuts (auto) 1.8 10^3/uL (1.7-8.2) 07/30/19 04:42 Absolute Lymphs (auto) 1.2 10^3/uL (0.5-4.7) 07/30/19 04:42 Absolute Monos (auto) 0.5 10^3/uL (0.1-1.4) 07/30/19 04:42 Absolute Eos (auto) 0.2 10^3/uL (0.0-0.6) 07/30/19 04:42 Absolute Basos (auto) 0.0 10^3/uL (0.0-0.2) 07/30/19 04:42 Seg Neutrophils % 47.0 % (42-78) 07/30/19 04:42 PT 12.3 SEC (11.4-15.4) 07/28/19 19:03 INR 0.92 07/28/19 19:03 APTT 24.4 SEC (23.5-35.8) 07/28/19 19:03 Sodium 137.9 mmol/L (137-145) 07/30/19 04:42 Potassium 4.3 mmol/L (3.6-5.0) 07/30/19 04:42 Chloride 100 mmol/L (98-107) 07/30/19 04:42 Carbon Dioxide 32 mmol/L (22-30) H 07/30/19 04:42 Anion Gap 6 (5-19) 07/30/19 04:42 BUN 11 mg/dL (7-20) 07/30/19 04:42 Creatinine 0.86 mg/dL (0.52-1.25) 07/30/19 04:42 Est GFR ( Amer) > 60 (>60) 07/30/19 04:42 Est GFR (MDRD) Non-Af > 60 (>60) 07/30/19 04:42 Glucose 101 mg/dL (75-110) 07/30/19 04:42 POC Glucose 101 mg/dL (70-110) 07/30/19 11:42 Hemoglobin A1c % 6.4 % (4.7-6.0) H 07/29/19 03:44 Lactic Acid 1.4 mmol/L (0.7-2.1) 07/28/19 21:46 Calcium 8.7 mg/dL (8.4-10.2) 07/30/19 04:42 Phosphorus 3.1 mg/dL (2.5-4.5) 07/29/19 03:44 Magnesium 1.9 mg/dL (1.6-2.3) 07/29/19 03:44 Total Bilirubin 0.3 mg/dL (0.2-1.3) 07/28/19 19:03 Total Bilirubin 0.3 mg/dL (0.2-1.3) 07/28/19 19:03 Direct Bilirubin 0.3 mg/dL (0.0-0.4) 07/28/19 19:03 Direct Bilirubin 0.3 mg/dL (0.0-0.4) 07/28/19 19:03 Neonat Total Bilirubin Not Reportable 07/28/19 19:03 Neonat Total Bilirubin Not Reportable 07/28/19 19:03 Neonat Direct Bilirubin Not Reportable 07/28/19 19:03 Neonat Direct Bilirubin Not Reportable 07/28/19 19:03 Neonat Indirect Bili Not Reportable 07/28/19 19:03 Neonat Indirect Bili Not Reportable 07/28/19 19:03 AST 29 U/L (17-59) 07/28/19 19:03 AST 30 U/L (17-59) 07/28/19 19:03 ALT 22 U/L (<50) 07/28/19 19:03 ALT 23 U/L (<50) 07/28/19 19:03 Alkaline Phosphatase 176 U/L (38-126) H 07/28/19 19:03 Alkaline Phosphatase 178 U/L (38-126) H 07/28/19 19:03 Creatine Kinase 163 U/L (55-170) 07/28/19 19:03 CK-MB (CK-2) 2.58 ng/mL (<4.55) 07/28/19 19:03 Troponin I < 0.012 ng/mL 07/29/19 15:32 NT-Pro-B Natriuret Pep 59 pg/mL (<125) 07/29/19 03:44 Total Protein 7.3 g/dL (6.3-8.2) 07/28/19 19:03 Total Protein 7.5 g/dL (6.3-8.2) 07/28/19 19:03 Albumin 3.8 g/dL (3.5-5.0) 07/28/19 19:03 Albumin 3.9 g/dL (3.5-5.0) 07/28/19 19:03 Lipase 127.3 U/L (23-300) 07/28/19 19:03 TSH 0.50 uIU/mL (0.47-4.68) 07/29/19 03:44 Urine Color YELLOW 07/28/19 21:52 Urine Appearance CLEAR 07/28/19 21:52 Urine pH 7.0 (5.0-9.0) 07/28/19 21:52 Ur Specific Colver 1.015 07/28/19 21:52 Urine Protein 30 mg/dL (NEGATIVE) H 07/28/19 21:52 Urine Glucose (UA) NEGATIVE mg/dL (NEGATIVE) 07/28/19 21:52 Urine Ketones NEGATIVE mg/dL (NEGATIVE) 07/28/19 21:52 Urine Blood NEGATIVE (NEGATIVE) 07/28/19 21:52 Urine Nitrite NEGATIVE (NEGATIVE) 07/28/19 21:52 Urine Bilirubin NEGATIVE (NEGATIVE) 07/28/19 21:52 Urine Urobilinogen 4.0 mg/dL (<2.0) H 07/28/19 21:52 Ur Leukocyte Esterase NEGATIVE (NEGATIVE) 07/28/19 21:52 Urine WBC (Auto) 1 /HPF 07/28/19 21:52 Urine RBC (Auto) 5 /HPF 07/28/19 21:52 U Hyaline Cast (Auto) 1 /LPF 07/28/19 21:52 Squamous Epi Cells Auto <1 /HPF 07/28/19 21:52 Urine Mucus (Auto) RARE /LPF 07/28/19 21:52 Urine Ascorbic Acid 40 (NEGATIVE) H 07/28/19 21:52 07/28/19 07/28/19 07/29/19 19:03 21:46 03:44 CK-MB (CK-2) 2.58 Troponin I < 0.012 0.026 < 0.012 NT-Pro-B Natriuret Pep 59 07/29/19 07/29/19 09:48 15:32 CK-MB (CK-2) Troponin I < 0.012 < 0.012 NT-Pro-B Natriuret Pep Impressions: Chest X-Ray 07/28/19 19:12 IMPRESSION: NO ACUTE RADIOGRAPHIC FINDING IN THE CHEST. KUB X-Ray 07/28/19 19:25 IMPRESSION: Possible constipation. Abdomen/Pelvis CT 07/29/19 07:30 IMPRESSION: 1. SCLEROTIC LESIONS IN THE RIGHT AND LEFT ILIAC BONE. 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 CANNOT EXCLUDE OSTEOBLASTIC METASTASES. RECOMMEND CORRELATION WITH ANY HISTORY OF MALIGNANCY INCLUDING PROSTATE CANCER. IF THERE IS CLINICAL SUSPICION, THEN MAY CONSIDER BONE SCAN. 2. PREVIOUS GASTRIC BYPASS. NO ABNORMAL APPEARANCE. 3. STABLE MILD NODULARITY OF THE ADRENAL GLANDS. 4. NO OTHER SIGNIFICANT OR ACUTE ABDOMINAL PROCESS. Plan Time Spent: Greater than 30 Minutes - Follow in office 1 week and follow-up with the cardiology Stroke Is this a Stroke Patient?: No Acute Heart Failure - Is this a Heart Failure Patient?: No
--- NOTE | 2019-07-30 13:45 | RADIOLOGY REPORT (SQ) ---
EXAM DESCRIPTION: NM WHOLE BODY BONE SCAN COMPLETED DATE/TIME: 07/30/2019 12:28 pm REASON FOR STUDY: lytic lesion R07.9 CHEST PAIN, UNSPECIFIED COMPARISON: CT abdomen and pelvis 07/29/2019 RADIONUCLIDE AND DOSE: 21.1 millicuries Tc99m HDP. The route of agent administration: Intravenous. ADDITIONAL DRUGS AND DOSES: None. TECHNIQUE: Routine delayed images at 3 hour post radionuclide injection acquired of the bony skeleto n including anterior and posterior whole-body projections and additional focused images as needed. LIMITATIONS: None. FINDINGS: BONES: No abnormal iliac bone uptake. Findings on recent CT therefore considered most con sistent with benign bone islands. Minimal punctate uptake at the T7 thoracic level dorsal midline. This could represent injury to the spinous process. Otherwise nonspecific. Correlate with history a nd midthoracic midline symptoms. Minimal uptake in the face suggests potential paranasal sinus and p eriodontal disease. There is also uptake in the sternoclavicular joints which is presumably degenera tive. KIDNEYS: Symmetric excretion without obstruction. OTHER: No other significant finding. IMPRESSION: No worrisome iliac bone lesions. Other findings as above. COMMENT: Quality measure 147: Current bone scan is compared with any available plain radiographs, p rior bone scans, and CT/MRI. TECHNICAL DOCUMENTATION: JOB ID: [id number] 2010 [employer]- All Rights Reserved Reading location - IP/workstation name: [email or web address]
[2019-07-30 14:34] VITALS: BP 138/66
== END 2019-07-30 15:11 | disposition home or self-care (01) ==
LOC: ER 18:48 → INTOOBSV 21:32 → EH 21:32 → 4S 07-29 00:15
PROVIDERS: ADMIT Family Medicine; ATTEND Family Medicine
DX: R10.84 Generalized abdominal pain (principal); R07.89 Other chest pain; K59.00 Constipation, unspecified; I10 Essential (primary) hypertension; E11.65 Type 2 diabetes mellitus with hyperglycemia; R19.8 Other specified symptoms and signs involving the digestive system and abdomen; R14.3 Flatulence; E78.5 Hyperlipidemia, unspecified; K56.7 Ileus, unspecified; E66.9 Obesity, unspecified; R91.8 Other nonspecific abnormal finding of lung field; R68.83 Chills (without fever); R60.9 Edema, unspecified; Z98.84 Bariatric surgery status; Z66 Do not resuscitate; Z79.82 Long term (current) use of aspirin; Z79.899 Other long term (current) drug therapy; Z79.84 Long term (current) use of oral hypoglycemic drugs; Z90.49 Acquired absence of other specified parts of digestive tract; Z87.891 Personal history of nicotine dependence; Z98.1 Arthrodesis status
CPT/HCPCS: 93005; 99285; 96374; 96375; 36415 ×3; 82553; 82962 ×3; 82550; 83605; 83690; 83735; 84100; 84443; 85025 ×3; 85610; 85730; 87070; 80048 ×2; 80053; 81001; 84484 ×2; 83036; 83880; 93306; 71045; 74018; 78306; 74176; 93010; G0378 ×3; A9561; A9270 ×20; J1644 ×2; J2270; J2405; Q9969; J3490